=== PATIENT | female | born 1945 | race Caucasian/White ===

== ENCOUNTER 2022-01-17 17:09 | Inpatient (IN) | payer OTHER, SELFPAY ==
[2022-01-17] VITALS (13 sets, daily range): BP systolic 112–152; BP diastolic 58–85; PULSE 76–88; RESP 16–43; TEMP 36.2–36.6; O2SAT 89–100; BMI 25263.0
--- NOTE | 2022-01-17 17:37 | DI.RAD.S_ITS ---
PROCEDURE: XR CHEST 2V INDICATIONS: shortness of breath TECHNIQUE: 2 views of the chest were acquired. COMPARISON: None. FINDINGS: Surgical changes and devices: Cervical fusion hardware is present. Lungs and pleura: There is mild diffuse reticulonodular pulmonary opacity. No pleural effusions or pneumothorax. Mediastinum: Mediastinal contours are normal. Heart size is normal. Bones and chest wall: No suspicious bony abnormalities. Soft tissues appear unremarkable. IMPRESSION: Mild atypical pneumonia. Dictated by: Saranya Balderas M.D. on 01/17/2022 at 18:32 Approved by: Saranya Balderas M.D. on 01/17/2022 at 18:33
[2022-01-17 18:44] LABS: Add Manual Diff / Slide Review NO; Basophils Absolute Auto 100 /uL (0-100); Basophils Percent Auto 2.2 % (0-2); Eosinophils Absolute Auto 100 /uL (0-450); Eosinophils Percent Auto 2.2 % (2-4); Lymphocytes Absolute Auto 1200 /uL (1100-4500); Lymphocytes Percent Auto 18.7 % (25-40); Mean Corpuscular HGB Conc 29.9 % (30-36); Mean Corpuscular Hemoglobin 21.4 PG (26-34); Mean Corpuscular Volume 71.6 fL (80-100); Monocytes Absolute Auto 900 /uL (0-900); Monocytes Percent Auto 14.7 % (3-14); Neutrophils Absolute Auto 3900 /uL (1500-7000); Neutrophils Percent Auto 62.2 % (50-75); Platelet Count 404 X10^3/uL (150-400); Red Blood Cell Count 1.78 X10^6/uL (4.0-5.2); Red Cell Distribution Width 18.4 % (11.6-14.8); White Blood Cell Count 6.2 X10^3/uL (4.5-11.0)
--- NOTE | 2022-01-17 18:53 | ED_ITS ---
HPI - Chest Pain General Chief Complaint: Shortness of Breath/Dyspnea Stated Complaint: SOB/Chest Pain/Numbness In Arms/Leg Swelling Time Seen by Provider: 01/17/22 18:10 Source: patient and family Mode of arrival: Wheelchair Limitations: no limitations History of Present Illness HPI narrative: 76-year-old female with a history of hypertension and Delvalle's esophagus presents with family in the chief complaint of increasing shortness of breath, fatigue and lightheadedness over the past 1-2 weeks. She denies any runny nose, sore throat or cough. She is had no fever or chills. She denies chest pain. She denies any current abdominal pain but has had crampy abdominal discomfort and the passage of dark stool over this time. She denies any change in diet or medications. She takes no blood thinners and denies any history of liver disease. Related Data Home Medications Medication Instructions Recorded Confirmed atenolol 25 mg tablet 25 mg PO BID 01/17/22 01/17/22 duloxetine 20 mg capsule,delayed 20 mg PO DAILY 01/17/22 01/17/22 release escitalopram oxalate 5 mg tablet 5 mg PO TID 01/17/22 01/17/22 hydrochlorothiazide 25 mg tablet 25 mg PO DAILY 01/17/22 01/17/22 methocarbamol 750 mg tablet 750 mg PO BID PRN Pain (Scale 01/17/22 01/17/22 Score 4-6) omeprazole 20 mg capsule,delayed 20 mg PO BID 01/17/22 01/17/22 release Allergies Allergy/AdvReac Type Severity Reaction Status Date / Time aripiprazole [From Abilify] Allergy Unknown Verified 01/17/22 17:33 Penicillins Allergy Unknown Verified 01/17/22 17:33 Review of Systems Review of Systems Narrative: GENERAL: See HPI HEENT: Denies sinus pain, ear pain, sore throat, difficulty swallowing, dizziness. RESPIRATORY: See HPI CARDIOVASCULAR: Denies chest pain, palpitations, orthopnea, edema, GASTROINTESTINAL: See HPI : Denies dysuria, frequency, incontinence, hematuria, urinary retention. MUSCULOSKELETAL: denies weakness, joint pain, or bony pain SKIN: Denies rash, skin lesions, or other NEUROLOGIC: Denies weakness, headache, numbness, change in speech, confusion, seizures, incoordination. PSYCHIATRIC: No concerning psychosocial issues. 12 point review of systems is negative except for those stated above Patient History Social History Smoking Status: Never smoker Smoking Status: Never smoker alcohol intake frequency: a few times a week Substance Use Type: does not use Exam Narrative Exam Narrative: GENERAL: [76] year old patient appears stated age. Well-developed patient, in moderate distress, minimal exertion makes her short of breath HEAD: Atraumatic. Normocephalic. EYES: Pale conjunctivae Pupils equal round and reactive. Extraocular motions intact. No scleral icterus. No injection or drainage. ENT: Nose without bleeding, purulent drainage. Throat without erythema, tons illar hypertrophy or exudate. Airway patent. NECK: Trachea midline. Non tender CARDIOVASCULAR: Regular rate and rhythm without murmurs, gallops, or rubs. RESPIRATORY: Clear to auscultation. Breath sounds equal bilaterally. No wheezes, rales, or rhonchi. GASTROINTESTINAL: Abdomen soft, non-tender, nondistended. RECTAL: No stool, blood, or pain EXTREMITIES: No edema or joint tenderness. BACK: Nontender without deformity or crepitance. No flank tenderness. NEURO: AOx3. SKIN: No rash or erythema of visible areas Initial Vital Signs Initial Vital Signs: Vital Signs Temperature 97.9 F 01/17/22 17:13 Pulse Rate 81 01/17/22 17:13 Respiratory Rate 24 01/17/22 17:13 Blood Pressure 139/58 L 01/17/22 17:13 Pulse Oximetry 91 01/17/22 17:13 Oxygen Delivery Method 01/17/22 17:13 Course Orders Ordered: Acetaminophen (Acetaminophen 325 Mg Tablet) 650 mg PO Q6HR PRN PRN Reason: Fever/Mild Pain (1-3) Last Admin: 01/17/22 22:10 Dose: 650 mg Documented By: ANITRA Pantoprazole Sodium (Pantoprazole 40 Mg Vial) 40 mg IV BID JENNY Discontinued Medications POTASSIUM CHLORIDE IN WATER (Potassium Cl 10 Meq/100 Ml Liza) 10 meq in 100 mls @ 100 mls/hr IV Q1H JENNY Stop: 01/17/22 23:29 Last Admin: 01/17/22 22:23 Dose: Not Given Documented By: Infusion: 01/17/22 22:23 Dose: 0 mls/hr Documented By: Infusion: 01/17/22 21:39 Dose: 100 mls/hr Documented By: Admin: 01/17/22 20:51 Dose: 100 mls/hr Documented By: Infusion: 01/17/22 20:43 Dose: 100 mls/hr Documented By: Admin: 01/17/22 19:43 Dose: 100 mls/hr Documented By: HEMANT Pantoprazole Sodium (Pantoprazole 40 Mg Vial) 80 mg IV NOW ONE Stop: 01/17/22 19:13 Last Admin: 01/17/22 19:24 Dose: 80 mg Documented By: HEMANT Consultations Consultation #1: Discussed with on-call general surgeon (Walter) who was happy to be involved in consultation when needed by hospitalist Consultation #2: Hospitalist happy to accept Vital Signs Vital signs: Vital Signs - 8 hr 01/17/22 21:00 Pulse Rate 84 Respiratory Rate 34 H Pulse Oximetry 100 MDM - Chest Pain Lab Data Result diagrams: 01/17/22 18:29 01/17/22 18:29 Labs: Lab Results 01/17/22 01/17/22 01/17/22 Range/Units 17:40 18:29 18:29 WBC 6.2 (4.5-11.0) X10^3/uL RBC 1.78 L (4.0-5.2) X10^6/uL Hgb 3.8 L* (12.0-16.0) g/dL Hct 12.8 L* (36-46) % MCV 71.6 L (80-100) fL MCH 21.4 L (26-34) PG MCHC 29.9 L (30-36) % RDW 18.4 H (11.6-14.8) % Plt Count 404 H (150-400) X10^3/uL Neut % (Auto) 62.2 (50-75) % Lymph % (Auto) 18.7 L (25-40) % Nobles % (Auto) 14.7 H (3-14) % Eos % (Auto) 2.2 (2-4) % Baso % (Auto) 2.2 H (0-2) % Neut # (Auto) 3900 (0342-5295) /uL Lymph # (Auto) 1200 (2761-1803) /uL Nobles # (Auto) 900 (0-900) /uL Eos # (Auto) 100 (0-450) /uL Baso # (Auto) 100 (0-100) /uL Percent Retic (1.1-2.6) % D-Dimer (<230) ng/mL Sodium 133 L (137-145) mmol/L Potassium 3.0 L (3.4-5.1) mmol/L Chloride 95 L (98-107) mmol/L Carbon Dioxide 29 (22-32) mmol/L BUN 29 H (7-17) mg/dL Creatinine 1.53 H (0.52-1.04) mg/dL Estimated GFR 35 L (>60) mL/min BUN/Creatinine Ratio 19.0 (6-22) Glucose 117 H (80-110) mg/dL Lactate 1.0 (0.7-2.1) mmol/L Calcium 8.8 (8.4-10.2) mg/dL Iron (37-170) ug/dL TIBC (265-497) ug/dL % Saturation (15-50) % Transferrin (206-381) mg/dL Total Bilirubin 0.4 (0.2-1.3) mg/dL AST 59 H (14-36) IU/L ALT 27 (<35) IU/L Alkaline Phosphatase 72 (38-126) U/L Troponin I (0.01-0.034) ng/mL NT-Pro-B Natriuret Pep (<125) pg/mL Total Protein 6.2 L (6.3-8.2) g/dL Albumin 4.0 (3.5-5.0) g/dL Globulin 2.2 (1.7-4.1) g/dL Albumin/Globulin Ratio 1.8 (1.0-2.8) Vitamin B12 (239-931) pg/mL Folate (2.76-20.0) ng/mL Procalcitonin (<0.5) ng/mL SARS-CoV-2 (PCR) (Negative) Blood Type Antibody Screen Crossmatch 01/17/22 01/17/22 01/17/22 Range/Units 18:29 18:29 18:29 WBC (4.5-11.0) X10^3/uL RBC (4.0-5.2) X10^6/uL Hgb (12.0-16.0) g/dL Hct (36-46) % MCV (80-100) fL MCH (26-34) PG MCHC (30-36) % RDW (11.6-14.8) % Plt Count (150-400) X10^3/uL Neut % (Auto) (50-75) % Lymph % (Auto) (25-40) % Nobles % (Auto) (3-14) % Eos % (Auto) (2-4) % Baso % (Auto) (0-2) % Neut # (Auto) (7089-7000) /uL Lymph # (Auto) (3435-9404) /uL Nobles # (Auto) (0-900) /uL Eos # (Auto) (0-450) /uL Baso # (Auto) (0-100) /uL Percent Retic (1.1-2.6) % D-Dimer < 200 (<230) ng/mL Sodium (137-145) mmol/L Potassium (3.4-5.1) mmol/L Chloride (98-107) mmol/L Carbon Dioxide (22-32) mmol/L BUN (7-17) mg/dL Creatinine (0.52-1.04) mg/dL Estimated GFR (>60) mL/min BUN/Creatinine Ratio (6-22) Glucose (80-110) mg/dL Lactate (0.7-2.1) mmol/L Calcium (8.4-10.2) mg/dL Iron (37-170) ug/dL TIBC (265-497) ug/dL % Saturation (15-50) % Transferrin (206-381) mg/dL Total Bilirubin (0.2-1.3) mg/dL AST (14-36) IU/L ALT (<35) IU/L Alkaline Phosphatase (38-126) U/L Troponin I (0.01-0.034) ng/mL NT-Pro-B Natriuret Pep 6820 H (<125) pg/mL Total Protein (6.3-8.2) g/dL Albumin (3.5-5.0) g/dL Globulin (1.7-4.1) g/dL Albumin/Globulin Ratio (1.0-2.8) Vitamin B12 (239-931) pg/mL Folate (2.76-20.0) ng/mL Procalcitonin 0.07 (<0.5) ng/mL SARS-CoV-2 (PCR) (Negative) Blood Type Antibody Screen Crossmatch 01/17/22 01/17/22 01/17/22 Range/Units 18:29 18:29 18:29 WBC (4.5-11.0) X10^3/uL RBC (4.0-5.2) X10^6/uL Hgb (12.0-16.0) g/dL Hct (36-46) % MCV (80-100) fL MCH (26-34) PG MCHC (30-36) % RDW (11.6-14.8) % Plt Count (150-400) X10^3/uL Neut % (Auto) (50-75) % Lymph % (Auto) (25-40) % Nobles % (Auto) (3-14) % Eos % (Auto) (2-4) % Baso % (Auto) (0-2) % Neut # (Auto) (2436-9563) /uL Lymph # (Auto) (8686-7803) /uL Nobles # (Auto) (0-900) /uL Eos # (Auto) (0-450) /uL Baso # (Auto) (0-100) /uL Percent Retic 4.0 H (1.1-2.6) % D-Dimer (<230) ng/mL Sodium (137-145) mmol/L Potassium (3.4-5.1) mmol/L Chloride (98-107) mmol/L Carbon Dioxide (22-32) mmol/L BUN (7-17) mg/dL Creatinine (0.52-1.04) mg/dL Estimated GFR (>60) mL/min BUN/Creatinine Ratio (6-22) Glucose (80-110) mg/dL Lactate (0.7-2.1) mmol/L Calcium (8.4-10.2) mg/dL Iron 26 L (37-170) ug/dL TIBC 480 (265-497) ug/dL % Saturation 5 L (15-50) % Transferrin 415 H (206-381) mg/dL Total Bilirubin (0.2-1.3) mg/dL AST (14-36) IU/L ALT (<35) IU/L Alkaline Phosphatase (38-126) U/L Troponin I 0.019 (0.01-0.034) ng/mL NT-Pro-B Natriuret Pep (<125) pg/mL Total Protein (6.3-8.2) g/dL Albumin (3.5-5.0) g/dL Globulin (1.7-4.1) g/dL Albumin/Globulin Ratio (1.0-2.8) Vitamin B12 (239-931) pg/mL Folate (2.76-20.0) ng/mL Procalcitonin (<0.5) ng/mL SARS-CoV-2 (PCR) (Negative) Blood Type Antibody Screen Crossmatch 01/17/22 01/17/22 01/17/22 Range/Units 18:29 18:31 19:24 WBC (4.5-11.0) X10^3/uL RBC (4.0-5.2) X10^6/uL Hgb (12.0-16.0) g/dL Hct (36-46) % MCV (80-100) fL MCH (26-34) PG MCHC (30-36) % RDW (11.6-14.8) % Plt Count (150-400) X10^3/uL Neut % (Auto) (50-75) % Lymph % (Auto) (25-40) % Nobles % (Auto) (3-14) % Eos % (Auto) (2-4) % Baso % (Auto) (0-2) % Neut # (Auto) (9665-2698) /uL Lymph # (Auto) (3197-7744) /uL Nobles # (Auto) (0-900) /uL Eos # (Auto) (0-450) /uL Baso # (Auto) (0-100) /uL Percent Retic (1.1-2.6) % D-Dimer (<230) ng/mL Sodium (137-145) mmol/L Potassium (3.4-5.1) mmol/L Chloride (98-107) mmol/L Carbon Dioxide (22-32) mmol/L BUN (7-17) mg/dL Creatinine (0.52-1.04) mg/dL Estimated GFR (>60) mL/min BUN/Creatinine Ratio (6-22) Glucose (80-110) mg/dL Lactate (0.7-2.1) mmol/L Calcium (8.4-10.2) mg/dL Iron (37-170) ug/dL TIBC (265-497) ug/dL % Saturation (15-50) % Transferrin (206-381) mg/dL Total Bilirubin (0.2-1.3) mg/dL AST (14-36) IU/L ALT (<35) IU/L Alkaline Phosphatase (38-126) U/L Troponin I (0.01-0.034) ng/mL NT-Pro-B Natriuret Pep (<125) pg/mL Total Protein (6.3-8.2) g/dL Albumin (3.5-5.0) g/dL Globulin (1.7-4.1) g/dL Albumin/Globulin Ratio (1.0-2.8) Vitamin B12 849 (239-931) pg/mL Folate > 20.0 H (2.76-20.0) ng/mL Procalcitonin (<0.5) ng/mL SARS-CoV-2 (PCR) Negative (Negative) Blood Type O Positive Antibody Screen Negative Crossmatch See Detail Discharge Plan Departure Patient Disposition: Admitted As Inpatient Clinical Impression: Symptomatic anemia, Acute GI bleeding Admit Date/Time: 01/17/22 21:09 Admit Provider: Juanjose Harrell
[2022-01-17 18:56] LABS: Hemoglobin 3.8 g/dL (12.0-16.0)
[2022-01-17 18:57] LABS: Hematocrit 12.8 % (36-46)
[2022-01-17 18:58] LABS: Alanine Aminotransferase 27 IU/L (<35); Albumin Globulin Ratio 1.8 (1.0-2.8); Alkaline Phosphatase 72 U/L (38-126); Aspartate Aminotransferase 59 IU/L (14-36); Bilirubin Total 0.4 mg/dL (0.2-1.3); Blood Urea Nitrogen 29 mg/dL (7-17); Calcium 8.8 mg/dL (8.4-10.2); Carbon Dioxide 29 mmol/L (22-32); Chloride 95 mmol/L (98-107); Estimated Glomerular Filt Rate 35 mL/min (>60); Globulin 2.2 g/dL (1.7-4.1); Glucose 117 mg/dL (80-110); HEMOLYSIS < 15 (0-50); Sodium 133 mmol/L (137-145); Total Protein 6.2 g/dL (6.3-8.2)
[2022-01-17 19:03] LABS: D Dimer < 200 ng/mL (<230)
[2022-01-17 19:06] LABS: NT-proBNP (BNP-Adult 18+) 6820 pg/mL (<125)
[2022-01-17 19:13] LABS: Procalcitonin 0.07 ng/mL (<0.5)
[2022-01-17 19:22] LABS: COVID19 -Nasal RAPID Negative (Negative)
[2022-01-17] MEDS: PANTOPRAZOLE 40 MG VIAL 80 MG IV (19:24)
[2022-01-17] MEDS: POTASSIUM CHLORIDE IN WATER 10 MEQ/100 ML PIGGYBACK 100 MEQ IV ×2 (19:43→20:51)
--- NOTE | 2022-01-17 20:20 | PC.NURSE ---
pt assisted back to the stretcher from the [facility], YOU noted, pt placed on oxygen @ 2L NBP
[2022-01-17 21:43] LABS: HEMOLYSIS 39 (0-50); Iron 26 ug/dL (37-170)
--- NOTE | 2022-01-17 21:43 | DI.ECHO.S_ITS ---
[place] +---------+ [facility] +---------+ : : [address] : : : : [id number] : : : : Phone: [phone]+ Echocardiogram Report + + :Name: ZANE MCDANIELS Study Date: 01/18/2022 Height: 62 in : :[facility] ReadingLocation: Weight: 138 lb : : Gender: Female BSA: 1.6 m2 : :: 1945 Age: 76 yrs BP: 159/64 mmHg: :Reason For Study: ELEVATED BNP, CHF : :Ordering Physician: JESUS, : :GONZALO Performed By: Anastacia Medina : :Referring: GONZALO LEE : + + Interpretation Summary The left ventricle is normal in size. Left ventricular systolic function appears normal without focal wall motion abnormalities. The ejection fraction is estimated to be 60-65%. Diastolic function could not be accurately assessed due to confounding valvular disease. The right ventricle is normal in size and function. The right ventricular systolic pressure is estimated to be at least 58 mmHg based on an estimated right atrial pressure of 15 mm Hg. The left atrium is severely dilated. The right atrium is mildly dilated. There is moderate mitral regurgitation. There is moderate tricuspid regurgitation. There is no other significant valvular heart disease. The aortic root is normal size. Procedure: A two-dimensional transthoracic echocardiogram with color flow and Doppler was performed. The study quality was technically good. There is no prior echocardiogram noted for this patient. The patient was in sinus rhythm with heart rates between 71-82 bpm during the exam. Left Ventricle: The left ventricle is normal in size. Proximal septal thickening is noted. Left ventricular systolic function appears normal without focal wall motion abnormalities. The ejection fraction is estimated to be 60- 65%. Diastolic function could not be accurately assessed due to confounding valvular disease. Right Ventricle: The right ventricle is normal in size and function. Atria: The left atrium is severely dilated. The right atrium is mildly dilated. There is no Doppler evidence for an interatrial shunt. Mitral Valve: The mitral valve leaflets appear mildly thickened, but open well. There is mild mitral annular calcification. There is moderate mitral regurgitation. Aortic Valve: The aortic valve is slightly calcified. There is moderate aortic valve sclerosis. The peak aortic velocity is 2.4 m/sec. The aortic valve mean gradient is 12 mmHg. The calculated aortic valve area is 1.6 cm2. There is trace aortic regurgitation. Tricuspid Valve: The tricuspid valve leaflets are thin and pliable. There is moderate tricuspid regurgitation. The right ventricular systolic pressure is estimated to be at least 58 mmHg based on an estimated right atrial pressure of 15 mm Hg. Pulmonic Valve: The pulmonic valve leaflets are thin and pliable; valve motion is normal. There is mild pulmonic regurgitation. There is no other significant valvular heart disease. Great Vessels: The aortic root is normal size. The dimensions of the ascending aorta are normal. The IVC is dilated (diameter is greater than 2.1 cm) and it collapses less than 50% with a sniff. This suggests a high right atrial pressure of 15 mm Hg. Pericardium/ Pleura There is no pericardial effusion. There is no pleural effusion. MMode/2D Measurements & Calculations LVIDd: 5.1 cm LVOT diam: 2.0 cm LVIDs: 3.1 cm Ao root diam: 3.3 cm FS: 38.7 % asc Aorta Diam: 3.4 cm IVSd: 1.1 cm Ao Arch Diam (Prox Trans): 2.6 cm LVPWd: 1.1 cm LV plata. diameter/BSA (cm/m^2): 3.1 LV sys. diameter/BSA (cm/m^2): 1.9 LA A2 area: 22.4 cm2 RA long axis: 5.2 cm LA A4 area: 25.0 cm2 RA area: 19.1 cm2 LA length (vol): 5.3 cm RA vol: 59.3 ml LA vol: 90.0 ml RA : 36.3 ml/m2 LA vol index: 55.1 ml/m2 IVC diam: 2.6 cm RVD1 (basal): 3.9 cm RVD2 (mid): 3.0 cm TAPSE: 2.0 cm Doppler Measurements & Calculations Ao V2 max: 242.2 cm/sec LVOT Max Kristopher: 125.4 cm/sec Ao V2 mean: 163.4 cm/sec LV V1 max P.3 mmHg Ao max P.6 mmHg LV V1 VTI: 29.1 cm Ao mean P.2 mmHg FARIHA(I,D): 1.7 cm2 Ao V2 VTI: 53.5 cm FARIHA(V,D): 1.6 cm2 sev ratio: 0.54 FARIHA indexed to BSA (cm^2/m^2): 1.0 MV E max kristopher: 100.1 cm/sec TR max kristopher: 328.3 cm/sec MV A max kristopher: 84.9 cm/sec TR max P.1 mmHg MV E/A: 1.2 PA V2 max: 90.6 cm/sec Med Peak E' Kristopher: 7.5 cm/sec PA V2 mean: 53.7 cm/sec E/E' med: 13.3 PA mean P.3 mmHg Lat Peak E' Kristopher: 7.0 cm/sec PA pr(Accel): 27.6 mmHg E/E' lat: 14.3 E/e' average: 13.8 MV dec time: 0.21 sec SV(LVOT): 88.6 ml Reading Physician:11:20 AM
[2022-01-17 21:54] LABS: Percent Iron Saturation 5 % (15-50); Total Iron Binding Capacity 480 ug/dL (265-497); Transferrin 415 mg/dL (206-381)
[2022-01-17 21:56] LABS: Troponin I 0.019 ng/mL (0.01-0.034)
[2022-01-17] MEDS: ACETAMINOPHEN 325 MG TABLET 650 MG PO (22:10)
--- NOTE | 2022-01-17 22:36 | PC.NURSE ---
Admitted from ED. Patient complains of 3/10 chest pain and 7/10 back pain. Shortness of breath on exertion and occasionally shortness of breath at rest. Patient notably pale. Called lab due to long wait time for blood and they stated their machine was down and they had to do everything by hand. Continuing to wait for blood.
--- NOTE | 2022-01-17 22:53 | PM.HP.1 ---
History of Present Illness History of Present Illness Date Patient Seen: 01/17/22 Time Patient Seen: 21:00 Chief complaint: SOB/Chest Pain/Numbness In Arms/Leg Swelling Narrative: Ms. Martines is a 76W with PMH of depression, HTN, GERD, Alexander's esophagus who presents with fatigue, lightheaded, and short of breath. She states she has a history of peptic ulcers, and from her description had a perforation decades ago after which she had part of her stomach surgically removed. She states she has a history of pernicious anemia and possible iron deficiency, but is not currently on medications for these. She has noted intermittend red blood in her stool for quite some time. She has last colonoscopy approximately three years ago found to have diverticulosis, and she has alexander's esophagus. She has also had epigastric discomfort chronically. No vomiting blood, no fevers/chills. No coughing. She has no known history of cardiac disease. She has noted a 25lb weight loss within the last year and states this is intentional. In the ED workup was done, vitals notable for mild tachypnea and hypoxemia to 89% on room air. She was placed on nasal cannula. Labs notable for WBC 6.2, hgb 3.8, plts 404. Na 133, K 3.0, BUN 29, creatinine 1.53. Lactate 1.0. Procal 0.07. BNP 6820. Chest xray read a mild diffuse reticulonodular pulmonary opacity. She was ordered for protonix, IV fluid, and blood and admitted for further treatment. Social history: no smoking, rare alcohol use Family history: stomach cancer Patient History Family & Social History Safety & Behavioral: Feels Safe in Current Yes Environment Tobacco & Substance use: Smoking Status Never smoker alcohol intake frequency a few times a week Substance Use Type does not use Meds Home Medications and Allergies Home Medications Medication Instructions Recorded Confirmed Type atenolol 25 mg tablet 25 mg PO BID 01/17/22 01/17/22 History duloxetine 20 mg capsule,delayed 20 mg PO DAILY 01/17/22 01/17/22 History release escitalopram oxalate 5 mg tablet 5 mg PO TID 01/17/22 01/17/22 History hydrochlorothiazide 25 mg tablet 25 mg PO DAILY 01/17/22 01/17/22 History methocarbamol 750 mg tablet 750 mg PO BID PRN Pain (Scale 01/17/22 01/17/22 History Score 4-6) omeprazole 20 mg capsule,delayed 20 mg PO BID 01/17/22 01/17/22 History release Allergies Allergy/AdvReac Type Severity Reaction Status Date / Time aripiprazole [From Abilify] Allergy Unknown Verified 01/17/22 17:33 Penicillins Allergy Unknown Verified 01/17/22 17:33 Review of Systems Review of Systems Narrative: 14 systems reviewed and negative aside from what is noted in HPI Exam Vital Signs (past 8 hours): - 01/17/22 17:13 01/17/22 18:06 01/17/22 18:05 Temperature 97.9 F Pulse Rate 81 80 79 Respiratory Rate 24 20 24 Blood Pressure 139/58 L 149/67 H Pulse Oximetry 91 94 90 L Oxygen Delivery Method Room Air Room Air Room Air Oxygen Flow Rate 01/17/22 18:06 01/17/22 18:06 01/17/22 18:30 Temperature Pulse Rate 79 88 Respiratory Rate 24 20 Blood Pressure 149/67 H Pulse Oximetry 94 89 L Oxygen Delivery Method Room Air Oxygen Flow Rate 01/17/22 19:00 01/17/22 19:30 01/17/22 20:00 Temperature Pulse Rate 82 82 80 Respiratory Rate 37 H 34 H 37 H Blood Pressure Pulse Oximetry 95 94 94 Oxygen Delivery Method Oxygen Flow Rate 01/17/22 20:30 01/17/22 21:00 01/17/22 22:00 Temperature 97.3 F L Pulse Rate 80 84 82 Respiratory Rate 43 H 34 H 16 Blood Pressure 145/85 H Pulse Oximetry 100 100 100 Oxygen Delivery Method Oxygen Flow Rate 2 01/17/22 21:16 Temperature Pulse Rate Respiratory Rate Blood Pressure Pulse Oximetry Oxygen Delivery Method Nasal Cannula Oxygen Flow Rate Oxygen Delivery Method Nasal Cannula Oxygen Flow Rate 2 Narrative Exam Narrative: GEN: moderate respiratory distress HEENT: pale conjunctiva, PERRL NECK: trachea midline, no JVD CV: regular rate and rhythm, no murmurs PULM: clear bilaterally, no wheezes, rhonchi, rales ABD: soft, nontender, nondistended, no organomegaly, normal bowel sounds EXT: warm and well perfused, with no edema NEURO: awake, alert, oriented, with no focal deficits Objective Labs Result Diagrams: 01/17/22 18:29 01/17/22 18:29 Labs: Laboratory Results - last 24 hr 01/17/22 01/17/22 01/17/22 17:40 18:29 18:29 WBC 6.2 RBC 1.78 L Hgb 3.8 L* Hct 12.8 L* MCV 71.6 L MCH 21.4 L MCHC 29.9 L RDW 18.4 H Plt Count 404 H Neut % (Auto) 62.2 Lymph % (Auto) 18.7 L Bertie % (Auto) 14.7 H Eos % (Auto) 2.2 Baso % (Auto) 2.2 H Neut # (Auto) 3900 Lymph # (Auto) 1200 Bertie # (Auto) 900 Eos # (Auto) 100 Baso # (Auto) 100 Percent Retic D-Dimer Sodium 133 L Potassium 3.0 L Chloride 95 L Carbon Dioxide 29 BUN 29 H Creatinine 1.53 H Estimated GFR 35 L BUN/Creatinine Ratio 19.0 Glucose 117 H Lactate 1.0 Calcium 8.8 Iron TIBC % Saturation Transferrin Total Bilirubin 0.4 AST 59 H ALT 27 Alkaline Phosphatase 72 Troponin I NT-Pro-B Natriuret Pep Total Protein 6.2 L Albumin 4.0 Globulin 2.2 Albumin/Globulin Ratio 1.8 Procalcitonin SARS-CoV-2 (PCR) Blood Type Crossmatch 01/17/22 01/17/22 01/17/22 18:29 18:29 18:29 WBC RBC Hgb Hct MCV MCH MCHC RDW Plt Count Neut % (Auto) Lymph % (Auto) Bertie % (Auto) Eos % (Auto) Baso % (Auto) Neut # (Auto) Lymph # (Auto) Bertie # (Auto) Eos # (Auto) Baso # (Auto) Percent Retic D-Dimer < 200 Sodium Potassium Chloride Carbon Dioxide BUN Creatinine Estimated GFR BUN/Creatinine Ratio Glucose Lactate Calcium Iron TIBC % Saturation Transferrin Total Bilirubin AST ALT Alkaline Phosphatase Troponin I NT-Pro-B Natriuret Pep 6820 H Total Protein Albumin Globulin Albumin/Globulin Ratio Procalcitonin 0.07 SARS-CoV-2 (PCR) Blood Type Crossmatch 01/17/22 01/17/22 01/17/22 18:29 18:29 18:29 WBC RBC Hgb Hct MCV MCH MCHC RDW Plt Count Neut % (Auto) Lymph % (Auto) Bertie % (Auto) Eos % (Auto) Baso % (Auto) Neut # (Auto) Lymph # (Auto) Bertie # (Auto) Eos # (Auto) Baso # (Auto) Percent Retic 4.0 H D-Dimer Sodium Potassium Chloride Carbon Dioxide BUN Creatinine Estimated GFR BUN/Creatinine Ratio Glucose Lactate Calcium Iron 26 L TIBC 480 % Saturation 5 L Transferrin 415 H Total Bilirubin AST ALT Alkaline Phosphatase Troponin I 0.019 NT-Pro-B Natriuret Pep Total Protein Albumin Globulin Albumin/Globulin Ratio Procalcitonin SARS-CoV-2 (PCR) Blood Type Crossmatch 01/17/22 01/17/22 18:31 19:24 WBC RBC Hgb Hct MCV MCH MCHC RDW Plt Count Neut % (Auto) Lymph % (Auto) Bertie % (Auto) Eos % (Auto) Baso % (Auto) Neut # (Auto) Lymph # (Auto) Bertie # (Auto) Eos # (Auto) Baso # (Auto) Percent Retic D-Dimer Sodium Potassium Chloride Carbon Dioxide BUN Creatinine Estimated GFR BUN/Creatinine Ratio Glucose Lactate Calcium Iron TIBC % Saturation Transferrin Total Bilirubin AST ALT Alkaline Phosphatase Troponin I NT-Pro-B Natriuret Pep Total Protein Albumin Globulin Albumin/Globulin Ratio Procalcitonin SARS-CoV-2 (PCR) Negative Blood Type O Positive Crossmatch See Detail Assessment & Plan Assessment & Plan narrative: Ms. Martines is a 76W with PMH HTN, depression who presents with shortness of breath, fatigue and found to have severe anemia 1. Symptomatic severe anemia from probable GI bleeding -initial hemoglobin of 3.8 -check iron studies and b12 -patient has noted GI bleeding previously -in ED rectal showed no stool -ordered for protonix gtt for possible upper GI bleed -also has weight loss, would benefit ruling out malignancy -transfuse 2U PRBC -likely will need IV lasix if shortness of breath worsens -NPO after midnight -surgery consult for possible EGD/colonoscopy to evaluate for site of bleed 2. Acute hypoxemic respiratory failure -initial sats in the 80s on room air, placed on o2 -suspect secondary to severe anemia -xray read as questionable interstitial abnormality -clinically not presenting as a pneumonia, hold antibiotics for now -BNP elevated, possibly undiagnosed CHF will order ECHO 3. SANDRA -suspect secondary to hypovolemia due to severe anemia -possibly worsened due to blood pressure meds -did get IV fluids in the ED -suspect will continue to improve with resuscitation with blood 4. Hypertension -hold atenolol, HCTZ 5. Depression -continue escitalopram CODE: DNI, ok for CPR Proxy: Valeria Martines, daughter I have utilized all available resources to reconcile the patient's home medications. Time Spent With Patient Critical Care time: I spent a total of [] minutes of critical care time on this patient's care today; this time is exclusive of procedural time. Quality MIPS - Admit I confirm the patient?s Advance Care Plan is present, Code status is documented, Surrogate decision maker is in patient?s record [If Yes, STOP here]: Yes
[2022-01-18] VITALS (20 sets, daily range): BP systolic 115–170; BP diastolic 50–80; PULSE 71–81; RESP 13–20; TEMP 36.1–37.2; O2SAT 92–100; BMI 25263.0; BMI 25.6
--- NOTE | 2022-01-18 | PATH_ITS ---
[facility] Accession Number: [id number] . 01 Material submitted: . PART A: stomach - STOMACH BIOPSY PART B: gastrointestinal site - GASTRIC POLYP . 01 Diagnosis: A. Stomach, Biopsy: Mild chronic gastritis with intestinal metaplasia. Negative for Helicobacter by immunohistochemistry. Negative for dysplasia and malignancy. . B. Stomach, Polyp, Biopsy: Body-type mucosa with a few dilated glands, consistent with fundic gland polyps. No evidence of Helicobacter on H/E stain. Negative for intestinal metaplasia. Negative for dysplasia and malignancy. [facility] [place]/24/2022 1536 Local . 01 Electronically signed: . Valeria Cordova MD, Pathologist NPI- [id number] . 01 Gross description: . Part A: STOMACH BIOPSY: Received in formalin is 1 fragment(s) of michel, soft tissue measuring 0.4 x 0.3 x 0.1 cm submitted entirely in 1 cassette(s) Part B: GASTRIC POLYP: Received in formalin are 2 fragment(s) of michel, soft tissue measuring 0.3 x 0.2 x 0.1 cm to 0.3 x 0.2 x 0.1 cm submitted entirely in 1 cassette(s) /CPE 01/19/2022 0510 Local . 01 Microscopic: . A. An immunohistochemcial stain was performed to evaluate for Helicobacter organisms and is negative. The control stain showed appropriate reactivity. . * This test was developed and its performance characteristics determined by [employer]. It has not been cleared or approved by the U.S. Food and Drug Administration. The FDA has determined that such clearance or approval is not necessary. This test is used for clinical purposes. It should not be regarded as investigational or for research. . 01 Pathologist provided ICD-10: R10.9 . 01 CPT . 814981, 561617, K93556 Specimen Comment: A courtesy copy of this report has been sent to [phone] Performed at: 01 [facility] [address] [place] [address] [id number] MD Isaiah Becker MD Phone: [phone]
[2022-01-18 03:12] LABS: Folate > 20.0 ng/mL (2.76-20.0); Vitamin B12 849 pg/mL (239-931)
[2022-01-18 05:37] LABS: Add Manual Diff / Slide Review NO; Basophils Absolute Auto 200 /uL (0-100); Basophils Percent Auto 2.1 % (0-2); Eosinophils Absolute Auto 200 /uL (0-450); Eosinophils Percent Auto 3.1 % (2-4); Hemoglobin 7.4 g/dL (12.0-16.0); Lymphocytes Absolute Auto 1200 /uL (1100-4500); Lymphocytes Percent Auto 15.6 % (25-40); Mean Corpuscular Hemoglobin 25.1 PG (26-34); Mean Corpuscular Volume 78.3 fL (80-100); Monocytes Absolute Auto 900 /uL (0-900); Monocytes Percent Auto 11.7 % (3-14); Neutrophils Absolute Auto 5000 /uL (1500-7000); Neutrophils Percent Auto 67.5 % (50-75); Platelet Count 348 X10^3/uL (150-400); Red Blood Cell Count 2.93 X10^6/uL (4.0-5.2); White Blood Cell Count 7.5 X10^3/uL (4.5-11.0)
[2022-01-18] MEDS: ALBUTEROL/IPRATROPIUM 3 ML AMPUL INH (05:43)
[2022-01-18 05:49] LABS: BUN Creatinine Ratio 15.7 (6-22); Blood Urea Nitrogen 24 mg/dL (7-17); Calcium 8.7 mg/dL (8.4-10.2); Carbon Dioxide 32 mmol/L (22-32); Chloride 96 mmol/L (98-107); Estimated Glomerular Filt Rate 35 mL/min (>60); Glucose 114 mg/dL (80-110); HEMOLYSIS < 15 (0-50); Potassium 3.1 mmol/L (3.4-5.1); Sodium 135 mmol/L (137-145)
[2022-01-18] MEDS: PANTOPRAZOLE 40 MG VIAL IV ×2 (08:49→20:36)
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
--- NOTE | 2022-01-18 12:40 | DI.CT.S_ITS ---
PROCEDURE: CT CHEST ABD PEL W CON INDICATIONS: anemia TECHNIQUE: After the administration of oral and intravenous contrast, axial sections acquired from the supraclavicular neck to the pubic symphysis. Coronal and sagittal reformats were performed. For radiation dose reduction, the following was used: automated exposure control, adjustment of mA and/or kV according to patient size. COMPARISON: None. FINDINGS: Image quality: Excellent. Images are denoted as (series #/image #). CHEST: Lower Neck: No enlarged lymph nodes. Axillae: No enlarged lymph nodes. Lungs and Airways: Biapical pleural/parenchymal scarring present. Linear opacity at the left lung apex likely represents scarring but is slightly prominent/nodular at its inferior margin (3/46). Mild interlobular septal thickening at the lung bases. Minimal central ground-glass opacities present. Small cluster of micronodularity at the right upper lobe (for example 3/42), likely infectious/inflammatory. Pleura: Trace bilateral pleural effusions. Heart: No pericardial effusion. Multivessel coronary artery calcifications. Thoracic Vessels: The aorta and pulmonary arteries demonstrate normal size. Mediastinum and Vickie: No enlarged lymph nodes. Esophagus: No wall thickening. ABDOMEN: Liver: No suspicious focal lesions visualized. Probable Tip's lobe variant anatomy. Gallbladder: No radiopaque gallstones. Biliary ducts: Unremarkable. Pancreas: No main ductal dilation. Spleen: Unremarkable. Adrenal Glands: Unremarkable. Kidneys and Ureters: No hydronephrosis. Stomach and Bowel: Postsurgical changes of the stomach, likely prior partial gastrectomy. No evidence of mechanical small bowel obstruction. Mild predominantly sigmoid colonic diverticulosis without evidence of acute diverticulitis. Peritoneum: No abnormal intraperitoneal fluid. No free air. Ventral Wall: No hernia. Abdominal Nodes: No retroperitoneal or mesenteric adenopathy by size criteria. Vessels: Aorta and inferior vena cava are normal in size. PELVIS: Pelvic Organs: The uterus is not visualized and is presumed surgically absent. Bladder: Unremarkable. Pelvic Nodes: No enlarged lymph nodes. Miscellaneous: No inguinal hernias are seen. Bones: Multilevel degenerative change of the visualized spine. Postsurgical changes L2-L4 with screws and interbody spacers present. Remote healed angulated sternal body fracture. Multiple remote appearing vertebral body compression and split/pincer fractures present. IMPRESSION: 1. Trace bilateral pleural effusions and pulmonary findings suggestive of mild pulmonary edema. 2. Linear opacity at the left lung apex is suspected to represent scarring but is mildly prominent/nodular at its inferior margin and an underlying nodule is difficult to fully exclude. Follow-up imaging to ensure stability is recommended, consider an interval of 6-12 months or sooner/later at clinical discretion. 3. Small cluster of micro nodularity in the right upper lobe is likely infectious/inflammatory such as an infectious bronchiolitis or sequela of edema. 4. No acute findings visualized within the abdomen or pelvis. 5. Mild colonic diverticulosis without evidence of acute diverticulitis. Dictated by: Jarret Steel M.D. on 01/18/2022 at 13:28 Approved by: Jarret Steel M.D. on 01/18/2022 at 14:00
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
--- NOTE | 2022-01-18 14:39 | PC.NURSE ---
Pt to OR via w/c for EGD.
--- NOTE | 2022-01-18 14:44 | P.PN_ITS ---
Subjective Subjective Date Patient Seen: 01/18/22 Interval history: continues to feel short of breath today, mainly with exertion, but overall feels much improved. CT scan showed no obvious malignancy. General surgery to perform EGD today and if no obvious cause to perform colonoscopy in the next couple of days. Exam Vital Signs (past 8 hours): - 01/18/22 08:00 01/18/22 08:20 01/18/22 12:00 Temperature 98.0 F 97.4 F L Pulse Rate 81 74 Respiratory Rate 18 18 Blood Pressure 141/56 H 159/60 H Pulse Oximetry 93 93 94 Oxygen Delivery Method Room Air Oxygen Flow Rate 0 0 0 Oxygen Delivery Method Room Air Oxygen Flow Rate 0 Narrative Exam Narrative: GEN: elderly female, no acute distress, winded with prolonged sentences. HEENT: pale conjunctiva, PERRL NECK: trachea midline, no JVD CV: regular rate and rhythm, no murmurs PULM: clear bilaterally, no wheezes, rhonchi, rales ABD: soft, nontender, nondistended, no organomegaly, normal bowel sounds EXT: warm and well perfused, with no edema NEURO: awake, alert, oriented, with no focal deficits Objective Labs Result Diagrams: 01/18/22 05:17 01/18/22 05:17 Labs: Laboratory Results - last 24 hr 01/17/22 01/17/22 01/17/22 17:40 18:29 18:29 WBC 6.2 RBC 1.78 L Hgb 3.8 L* Hct 12.8 L* MCV 71.6 L MCH 21.4 L MCHC 29.9 L RDW 18.4 H Plt Count 404 H Neut % (Auto) 62.2 Lymph % (Auto) 18.7 L Wallace % (Auto) 14.7 H Eos % (Auto) 2.2 Baso % (Auto) 2.2 H Neut # (Auto) 3900 Lymph # (Auto) 1200 Wallace # (Auto) 900 Eos # (Auto) 100 Baso # (Auto) 100 Percent Retic D-Dimer Sodium 133 L Potassium 3.0 L Chloride 95 L Carbon Dioxide 29 BUN 29 H Creatinine 1.53 H Estimated GFR 35 L BUN/Creatinine Ratio 19.0 Glucose 117 H Lactate 1.0 Calcium 8.8 Iron TIBC % Saturation Transferrin Total Bilirubin 0.4 AST 59 H ALT 27 Alkaline Phosphatase 72 Troponin I NT-Pro-B Natriuret Pep Total Protein 6.2 L Albumin 4.0 Globulin 2.2 Albumin/Globulin Ratio 1.8 Vitamin B12 Folate Procalcitonin SARS-CoV-2 (PCR) Blood Type Antibody Screen Crossmatch 01/17/22 01/17/22 01/17/22 18:29 18:29 18:29 WBC RBC Hgb Hct MCV MCH MCHC RDW Plt Count Neut % (Auto) Lymph % (Auto) Wallace % (Auto) Eos % (Auto) Baso % (Auto) Neut # (Auto) Lymph # (Auto) Wallace # (Auto) Eos # (Auto) Baso # (Auto) Percent Retic D-Dimer < 200 Sodium Potassium Chloride Carbon Dioxide BUN Creatinine Estimated GFR BUN/Creatinine Ratio Glucose Lactate Calcium Iron TIBC % Saturation Transferrin Total Bilirubin AST ALT Alkaline Phosphatase Troponin I NT-Pro-B Natriuret Pep 6820 H Total Protein Albumin Globulin Albumin/Globulin Ratio Vitamin B12 Folate Procalcitonin 0.07 SARS-CoV-2 (PCR) Blood Type Antibody Screen Crossmatch 01/17/22 01/17/22 01/17/22 18:29 18:29 18:29 WBC RBC Hgb Hct MCV MCH MCHC RDW Plt Count Neut % (Auto) Lymph % (Auto) Wallace % (Auto) Eos % (Auto) Baso % (Auto) Neut # (Auto) Lymph # (Auto) Wallace # (Auto) Eos # (Auto) Baso # (Auto) Percent Retic 4.0 H D-Dimer Sodium Potassium Chloride Carbon Dioxide BUN Creatinine Estimated GFR BUN/Creatinine Ratio Glucose Lactate Calcium Iron 26 L TIBC 480 % Saturation 5 L Transferrin 415 H Total Bilirubin AST ALT Alkaline Phosphatase Troponin I 0.019 NT-Pro-B Natriuret Pep Total Protein Albumin Globulin Albumin/Globulin Ratio Vitamin B12 Folate Procalcitonin SARS-CoV-2 (PCR) Blood Type Antibody Screen Crossmatch 01/17/22 01/17/22 01/17/22 18:29 18:31 19:24 WBC RBC Hgb Hct MCV MCH MCHC RDW Plt Count Neut % (Auto) Lymph % (Auto) Wallace % (Auto) Eos % (Auto) Baso % (Auto) Neut # (Auto) Lymph # (Auto) Wallace # (Auto) Eos # (Auto) Baso # (Auto) Percent Retic D-Dimer Sodium Potassium Chloride Carbon Dioxide BUN Creatinine Estimated GFR BUN/Creatinine Ratio Glucose Lactate Calcium Iron TIBC % Saturation Transferrin Total Bilirubin AST ALT Alkaline Phosphatase Troponin I NT-Pro-B Natriuret Pep Total Protein Albumin Globulin Albumin/Globulin Ratio Vitamin B12 849 Folate > 20.0 H Procalcitonin SARS-CoV-2 (PCR) Negative Blood Type O Positive Antibody Screen Negative Crossmatch See Detail 01/18/22 01/18/22 05:17 05:17 WBC 7.5 RBC 2.93 L Hgb 7.4 L Hct 23.0 L MCV 78.3 L D MCH 25.1 L MCHC 32.0 RDW 19.0 H Plt Count 348 Neut % (Auto) 67.5 Lymph % (Auto) 15.6 L Wallace % (Auto) 11.7 Eos % (Auto) 3.1 Baso % (Auto) 2.1 H Neut # (Auto) 5000 Lymph # (Auto) 1200 Wallace # (Auto) 900 Eos # (Auto) 200 Baso # (Auto) 200 H Percent Retic D-Dimer Sodium 135 L Potassium 3.1 L Chloride 96 L Carbon Dioxide 32 BUN 24 H Creatinine 1.53 H Estimated GFR 35 L BUN/Creatinine Ratio 15.7 Glucose 114 H Lactate Calcium 8.7 Iron TIBC % Saturation Transferrin Total Bilirubin AST ALT Alkaline Phosphatase Troponin I NT-Pro-B Natriuret Pep Total Protein Albumin Globulin Albumin/Globulin Ratio Vitamin B12 Folate Procalcitonin SARS-CoV-2 (PCR) Blood Type Antibody Screen Crossmatch [facility] Medical History (Updated 01/18/22 @ 10:57 by Maria De Jesus Eastman RN) Delvalle esophagus Depression HTN (hypertension) Social History household members: none Smoking Status: Never smoker Assessment & Plan Assessment & Plan narrative: Ms. Martines is a 76W with PMH HTN, depression who presents with shortness of breath, fatigue and found to have severe anemia 1. Symptomatic severe anemia from probable GI bleeding -initial hemoglobin of 3.8, improved to >7 with 2U PRBC. Will continue to follow with Goal Hg >7. -iron panel with an iron deficiency anemia, likely with some anemia of chronic inflammation as well. b12 within normal limits. -patient has noted GI bleeding previously -in ED rectal showed no stool -ordered for protonix gtt for possible upper GI bleed, will continue -also has weight loss, but CT without any obvious malignancyt. -transfuse 2U PRBC -EGD today, possible colonoscopy depending on results. Appreciate general surger y consultation. 2. Acute hypoxemic respiratory failure -initial sats in the 80s on room air, placed on o2 -suspect secondary to severe anemia -xray read as questionable interstitial abnormality -clinically not presenting as a pneumonia, hold antibiotics for now -BNP elevated, possibly undiagnosed CHF but TTE without reduced EF. Unable to assess diastolic dysfunction. Moderate . 3. SANDRA -suspect secondary to hypovolemia due to severe anemia -possibly worsened due to blood pressure meds -did get IV fluids in the ED -suspect will continue to improve with resuscitation with blood 4. Hypertension -hold atenolol, HCTZ 5. Depression -continue escitalopram CODE: DNI, ok for CPR Proxy: Valeria Martines, daughter I have utilized all available resources to reconcile the patient's home medications. Time Spent With Patient Critical Care time: I spent a total of [] minutes of critical care time on this patient's care toda y; this time is exclusive of procedural time.
[2022-01-18] MEDS: LACTATED RINGERS 1,000 ML 150 ML IV (14:51)
[2022-01-18] MEDS: LIDOCAINE 4% SOLN 50 ML 20 ML TOP (15:05)
[2022-01-18] MEDS: fentaNYL 250 MCG/5 ML INJ 75 MCG IV (15:08)
[2022-01-18] MEDS: MIDAZOLAM 5 MG/5 ML VIAL 4 MG IV (15:08)
--- NOTE | 2022-01-18 15:09 | PC.NURSE ---
Day shift: Pt remains off unit at this time (1510).
--- NOTE | 2022-01-18 15:16 | PM.OP.EGD ---
Operative Date/Time/Diagnoses Date of procedure: 01/18/22 Time of procedure: 15:16 Pre-op diagnosis: Anemia Post-op diagnosis: same Procedure & Clinicians Study performed: Esophagogastroduodenoscopy Same procedure as scheduled: Yes Surgeon: Khang Watson Procedure Notes Procedure in detail: Surgeon: Khang Watson MD A timeout was performed. Topical lidocaine was administered to the posterior oropharynx. A bite blocked was placed. The patient was positioned in the left lateral decubitus position. Sedation was administered with Versed and fentanyl. The endoscope was inserted through the bite block and passed through the esophagus and stomach and into the duodenum. The duodenal mucosa appeared normal. The scope was withdrawn into the stomach. 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 There was some mild gastritis in the region corresponding to the presumed antrum. Random biopsies were taken. The scope was retroflexed and a small hiatal hernia was observed. There was no bright red blood or old blood noted in the stomach. There were also some polypoid lesions in the proximal stomach which were biopsied. The scope was withdrawn into the esophagus and no abnormalities were noted. The remainder of the esophagus was normal. The scope was withdrawn. The patient was awakened and brought to recovery. Versed: 4 Fentanyl: 75 Findings: Mild distal gastritis, a few fundic gland type polyps in the proximal stomach and a small hiatal hernia. No evidence for active or recent bleeding. Sedation minutes: 8 Post-procedure Disposition: PACU
--- NOTE | 2022-01-18 16:05 | PC.NURSE ---
Day shift: Pt back in room from EDG at approx 1605. VS WNL. Pt does appear tired and she is also pale. Placed on 2L NC and 92%. Encouraged to cough and deep breath. Has ice water and ice chips at bedside. Will continue with plan of care. Call light in reach and bed alarm is on.
[2022-01-18 19:53] LABS: Hematocrit 22.3 % (36-46)
[2022-01-19] VITALS (10 sets, daily range): BP systolic 140–183; BP diastolic 59–75; PULSE 62–88; RESP 17–20; TEMP 36.3–37.2; O2SAT 91–99
[2022-01-19 06:17] LABS: Add Manual Diff / Slide Review NO; Basophils Absolute Auto 100 /uL (0-100); Basophils Percent Auto 1.9 % (0-2); Eosinophils Absolute Auto 500 /uL (0-450); Eosinophils Percent Auto 7.1 % (2-4); Hematocrit 24.4 % (36-46); Hemoglobin 7.7 g/dL (12.0-16.0); Lymphocytes Absolute Auto 1100 /uL (1100-4500); Lymphocytes Percent Auto 14.6 % (25-40); Mean Corpuscular HGB Conc 31.4 % (30-36); Mean Corpuscular Hemoglobin 24.3 PG (26-34); Mean Corpuscular Volume 77.4 fL (80-100); Monocytes Absolute Auto 1200 /uL (0-900); Monocytes Percent Auto 15.9 % (3-14); Neutrophils Absolute Auto 4400 /uL (1500-7000); Neutrophils Percent Auto 60.5 % (50-75); Platelet Count 282 X10^3/uL (150-400); Red Blood Cell Count 3.15 X10^6/uL (4.0-5.2); Red Cell Distribution Width 19.3 % (11.6-14.8); White Blood Cell Count 7.3 X10^3/uL (4.5-11.0)
[2022-01-19 06:46] LABS: Alanine Aminotransferase 24 IU/L (<35); Albumin 3.4 g/dL (3.5-5.0); Albumin Globulin Ratio 1.5 (1.0-2.8); Alkaline Phosphatase 62 U/L (38-126); Aspartate Aminotransferase 54 IU/L (14-36); BUN Creatinine Ratio 13.2 (6-22); Bilirubin Total 0.5 mg/dL (0.2-1.3); Blood Urea Nitrogen 16 mg/dL (7-17); Calcium 8.5 mg/dL (8.4-10.2); Carbon Dioxide 34 mmol/L (22-32); Chloride 98 mmol/L (98-107); Estimated Glomerular Filt Rate 47 mL/min (>60); Globulin 2.2 g/dL (1.7-4.1); Glucose 84 mg/dL (80-110); HEMOLYSIS 37 (0-50); Potassium 3.2 mmol/L (3.4-5.1); Sodium 139 mmol/L (137-145); Total Protein 5.6 g/dL (6.3-8.2)
[2022-01-19] MEDS: PANTOPRAZOLE 40 MG VIAL IV ×2 (09:15→21:00)
[2022-01-19 10:36] LABS: Magnesium 1.7 mg/dL (1.6-2.3)
[2022-01-19] MEDS: POTASSIUM CHLORIDE 20 MEQ/15 ML UDC 40 MEQ PO (10:40)
--- NOTE | 2022-01-19 10:47 | CM.DPC ---
DCP Cont: Per MD, pt had EGD with Surgeon yesterday 01/18/22 and tolerated well and results appear normal and Surgeon recommending colonoscopy today. Unclear what time pt to have procedure in OR but during MDR rounds confirmed pt on the schedule for today sometime. Pt alert and oriented in her room and appreciative of care and confirms she is prepping for colonoscopy today and is hopeful for d/c back home with DIL assist. Plan: SW to follow after colonoscopy sometime today towards confirming pt steady and safe for d/c home with family assist when medically stable to discharge and any further identified needs. Krista Gonzalez MSW
[2022-01-19] MEDS: MAGNESIUM CHLORIDE 64 MG TABLET 128 MG PO (12:48)
--- NOTE | 2022-01-19 13:59 | PM.PN.1 ---
Subjective Subjective Date Patient Seen: 01/19/22 Interval history: continues to feel short of breath today, mainly with exertion, but overall feels much improved. CT scan showed no obvious malignancy. General surgery performed EGD, with no evidence of recent or active bleeding. Possible C-scope pending surgery recommendations. Exam Vital Signs (past 8 hours): - 01/19/22 07:26 01/19/22 07:30 01/19/22 11:02 Temperature 98.4 F 99.0 F Pulse Rate 84 86 Respiratory Rate 18 18 Blood Pressure 147/59 H 160/64 H Pulse Oximetry 93 93 94 Oxygen Delivery Method Nasal Cannula Oxygen Flow Rate 2 2 0 01/19/22 12:00 Temperature 99.0 F Pulse Rate 86 Respiratory Rate 18 Blood Pressure 160/64 H Pulse Oximetry 94 Oxygen Delivery Method Oxygen Flow Rate 0 Oxygen Delivery Method Nasal Cannula Oxygen Flow Rate 0 Narrative Exam Narrative: GEN: elderly female, no acute distress, winded with prolonged sentences. HEENT: pale conjunctiva, PERRL NECK: trachea midline, no JVD CV: regular rate and rhythm, no murmurs PULM: clear bilaterally, no wheezes, rhonchi, rales ABD: soft, nontender, nondistended, no organomegaly, normal bowel sounds EXT: warm and well perfused, with no edema NEURO: awake, alert, oriented, with no focal deficits Objective Labs Result Diagrams: 01/19/22 05:26 01/19/22 05:26 Labs: Laboratory Results - last 24 hr 01/18/22 01/19/22 01/19/22 19:45 05:26 05:26 WBC 7.3 RBC 3.15 L Hgb 7.0 L 7.7 L Hct 22.3 L 24.4 L MCV 77.4 L MCH 24.3 L MCHC 31.4 RDW 19.3 H Plt Count 282 Neut % (Auto) 60.5 Lymph % (Auto) 14.6 L Petroleum % (Auto) 15.9 H Eos % (Auto) 7.1 H Baso % (Auto) 1.9 Neut # (Auto) 4400 Lymph # (Auto) 1100 [place]roleum # (Auto) 1200 H Eos # (Auto) 500 H Baso # (Auto) 100 Sodium 139 Potassium 3.2 L Chloride 98 Carbon Dioxide 34 H BUN 16 Creatinine 1.21 H Estimated GFR 47 L BUN/Creatinine Ratio 13.2 Glucose 84 Calcium 8.5 Magnesium Total Bilirubin 0.5 AST 54 H ALT 24 Alkaline Phosphatase 62 Total Protein 5.6 L Albumin 3.4 L Globulin 2.2 Albumin/Globulin Ratio 1.5 01/19/22 05:26 WBC RBC Hgb Hct MCV MCH MCHC RDW Plt Count Neut % (Auto) Lymph % (Auto) Petroleum % (Auto) Eos % (Auto) Baso % (Auto) Neut # (Auto) Lymph # (Auto) Petroleum # (Auto) Eos # (Auto) Baso # (Auto) Sodium Potassium Chloride Carbon Dioxide BUN Creatinine Estimated GFR BUN/Creatinine Ratio Glucose Calcium Magnesium 1.7 Total Bilirubin AST ALT Alkaline Phosphatase Total Protein Albumin Globulin Albumin/Globulin Ratio [facility] Medical History (Updated 01/18/22 @ 10:57 by Maria De Jesus Eastman, CHEIKH) Delvalle esophagus Depression HTN (hypertension) Social History household members: none Smoking Status: Never smoker Assessment & Plan Assessment & Plan narrative: Ms. Martines is a 76W with PMH HTN, depression who presents with shortness of breath, fatigue and found to have severe anemia 1. Symptomatic severe anemia from probable GI bleeding -initial hemoglobin of 3.8, improved to >7 with 2U PRBC. Will continue to follow with Goal Hg >7. -iron panel with an iron deficiency anemia, likely with some anemia of chronic inflammation as well. b12 within normal limits. -ordered for protonix gtt for possible upper GI bleed, will continue -also has weight loss, but CT without any obvious malignancy. -transfuse 2U PRBC -EGD 01/19 without obvious source of bleeding. C-scope possibly with general surgery. 2. Acute hypoxemic respiratory failure -initial sats in the 80s on room air, placed on o2 -suspect secondary to severe anemia -xray read as questionable interstitial abnormality -clinically not presenting as a pneumonia, hold antibiotics for now -BNP elevated, possibly undiagnosed CHF but TTE without reduced EF. Unable to assess diastolic dysfunction. Moderate . 3. SANDRA -suspect secondary to hypovolemia due to severe anemia -possibly worsened due to blood pressure meds -did get IV fluids in the ED -suspect will continue to improve with resuscitation with blood, improved from 1.53 to 1.21 today. 4. Hypertension -hold atenolol, HCTZ. restart after c-scope to avoid hypotension with prep. 5. Depression -continue escitalopram CODE: DNI, ok for CPR Proxy: Valeria Martines, daughter I have utilized all available resources to reconcile the patient's home medications. Time Spent With Patient Critical Care time: I spent a total of [] minutes of critical care time on this patient's care today; this time is exclusive of procedural time.
[2022-01-19] MEDS: SODIUM CHLORIDE 0.9% FLUSH 10 ML IV (21:00)
[2022-01-19] MEDS: ACETAMINOPHEN 325 MG TABLET 650 MG PO (21:07)
[2022-01-20 04:15] VITALS: BP 164/53; PULSE 89; RESP 14; TEMP 36.7; O2SAT 94
--- NOTE | 2022-01-20 04:22 | PC.NURSE ---
Patient requested not to activate her bed alarm. States I'm just getting up to the BSC, besides I had no fall @ home lately. Denies any dizziness & reported a little stronger tonight. Reminded to call nursing staff for any assistance. Will continue POC & monitor.
[2022-01-20 07:00] VITALS: O2SAT 96
[2022-01-20 07:11] LABS: Alanine Aminotransferase 22 IU/L (<35); Albumin 3.3 g/dL (3.5-5.0); Albumin Globulin Ratio 1.5 (1.0-2.8); Alkaline Phosphatase 71 U/L (38-126); Aspartate Aminotransferase 31 IU/L (14-36); BUN Creatinine Ratio 12.4 (6-22); Bilirubin Total 0.3 mg/dL (0.2-1.3); Blood Urea Nitrogen 15 mg/dL (7-17); Carbon Dioxide 34 mmol/L (22-32); Chloride 101 mmol/L (98-107); Estimated Glomerular Filt Rate 47 mL/min (>60); Globulin 2.2 g/dL (1.7-4.1); Glucose 102 mg/dL (80-110); HEMOLYSIS < 15 (0-50); Potassium 3.1 mmol/L (3.4-5.1); Sodium 138 mmol/L (137-145); Total Protein 5.5 g/dL (6.3-8.2)
[2022-01-20 07:22] LABS: Add Manual Diff / Slide Review NO; Basophils Absolute Auto 100 /uL (0-100); Basophils Percent Auto 2.1 % (0-2); Eosinophils Absolute Auto 500 /uL (0-450); Eosinophils Percent Auto 8.1 % (2-4); Hematocrit 22.3 % (36-46); Hemoglobin 7.1 g/dL (12.0-16.0); Lymphocytes Absolute Auto 900 /uL (1100-4500); Lymphocytes Percent Auto 14.9 % (25-40); Mean Corpuscular HGB Conc 31.6 % (30-36); Mean Corpuscular Hemoglobin 24.6 PG (26-34); Mean Corpuscular Volume 77.9 fL (80-100); Monocytes Absolute Auto 900 /uL (0-900); Monocytes Percent Auto 14.6 % (3-14); Neutrophils Absolute Auto 3800 /uL (1500-7000); Neutrophils Percent Auto 60.3 % (50-75); Platelet Count 312 X10^3/uL (150-400); Red Blood Cell Count 2.87 X10^6/uL (4.0-5.2); White Blood Cell Count 6.2 X10^3/uL (4.5-11.0)
[2022-01-20] MEDS: PANTOPRAZOLE 40 MG VIAL IV (09:45)
[2022-01-20] MEDS: SODIUM CHLORIDE 0.9% FLUSH 10 ML IV (09:45)
[2022-01-20 11:42] VITALS: BP 166/69; PULSE 87; RESP 17; TEMP 36.6; O2SAT 93
--- NOTE | 2022-01-20 12:48 | CM.DPNOTE ---
Addendum entered by Page Yeh R.N. 01/20/22 13:30: IMM given to patient, verbalizes understanding. Patient states this afternoon she is being discharged and has notified her daughter. RILEY Original Note: Discharge Planning Note: Met with patient, she is pleasant, alert and oriented. EGD was negative yesterday. Unsure of when colonoscopy is planned. (Will it be inpatient vs outpatient?) Patient is independent in ADLs, with decreased activity tolerance. Patient declines Home Health. 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 Plan: When medically cleared, patient to return home to previous living situation; she lives in [facility] in [place]. Her supportive daughter in law lives a mile away and helps patient as needed. Ana Yeh RN, DCP
[2022-01-20] MEDS: methocarbamoL 500 MG TABLET 750 MG PO (13:10)
[2022-01-20] MEDS: atenoloL 25 MG TABLET PO (13:11)
--- NOTE | 2022-01-20 13:35 | P.DS_ITS ---
History of Present Illness History of Present Illness Date Patient Seen: 01/20/22 Chief complaint: SOB/Chest Pain/Numbness In Arms/Leg Swelling Narrative: Per H&P: Ms. Martines is a 76W with PMH of depression, HTN, GERD, Alexander's esophagus who presents with fatigue, lightheaded, and short of breath. She states she has a history of peptic ulcers, and from her description had a perforation decades ago after which she had part of her stomach surgically removed. She states she has a history of pernicious anemia and possible iron deficiency, but is not currently on medications for these. She has noted intermittend red blood in her stool for quite some time. She has last colonoscopy approximately three years ago found to have diverticulosis, and she has alexander's esophagus. She has also had epigastric discomfort chronically. No vomiting blood, no fevers/chills. No coughing. She has no known history of cardiac disease. She has noted a 25lb weight loss within the last year and states this is intentional. In the ED workup was done, vitals notable for mild tachypnea and hypoxemia to 89% on room air. She was placed on nasal cannula. Labs notable for WBC 6.2, hgb 3.8, plts 404. Na 133, K 3.0, BUN 29, creatinine 1.53. Lactate 1.0. Procal 0.07. BNP 6820. Chest xray read a mild diffuse reticulonodular pulmonary opacity. She was ordered for protonix, IV fluid, and blood and admitted for further treatment. Social history: no smoking, rare alcohol use Family history: stomach cancer Discharge Providers Provider Date of admission: 01/17/22 21:09 Discharge Date: 01/20/22 Consults: 01/18/22 07:23 Consult to General Surgery Routine Comment: Consulting Provider: Khang Watson Reason for consultation: gi bleed Has provider been notified: Yes Discharge provider: Meghana Ann MD Summary Hospital Course Discharge Diagnosis: Symptomatic severe anemia, likely secondary to chronic GI bleeding Acute hypoxemic respiratory failure, resolved, likely secondary to anemia SANDRA, resolved Hypertension, chronic, stable Depression, chronic, stable Hypokalemia, repleting Hospital Course: Patient presented to the emergency department with complaints of shortness of breath, chest pain, weakness, and was found to have a hemoglobin of 3.8. She had had some report of chronic abdominal discomfort her and some dark stool for quite some time. Previously had a colonoscopy 3 years ago with diverticulosis found. She also reported a history of Alexander's esophagus. Patient was admitted, received 2 units of packed red blood cells, and general surgery consultation was obtained. After transfusion and stabilization, she underwent an EGD on 01/18/2022, which revealed mild distal gastritis, a few fundic gland type polyps in the proximal stomach and a small hiatal hernia. There is no evidence for active or recent bleeding. Recommendations were for consideration of colonoscopy. However, as the patient's hemoglobin remained stable since admission, the recommendation from the general surgical team was that patient follow-up on an outpatient basis for colonoscopy. Patient's hemoglobin remains stable and above 7.0 from January 18 after transfusion until time of discharge on January 20. Patient did pass 1 small stool on the date of discharge which she described as being brown in color and shape ?like sausage links ?. Patient is discharged in stable condition. Status at Discharge Cognitive/behavioral status at discharge: at baseline, oriented Functional status at discharge: independent ambulation Overall status at discharge: patient is progressing back to baseline Time Spent with Patient Time spent: Greater than 30 minutes (35 minute spent coordinating discharge) Exam Vital Signs (past 8 hours): - 01/20/22 11:42 Temperature 97.8 F Pulse Rate 87 Respiratory Rate 17 Blood Pressure 166/69 H Pulse Oximetry 93 Oxygen Flow Rate 0 Oxygen Delivery Method Nasal Cannula Oxygen Flow Rate 0 Narrative Exam Narrative: GEN: Alert and oriented x 3, NAD HEENT:NC, Face symmetric CHEST: Respiratory excursions symmetric, CTAB CV: RRR, no M/R/G ABD: Soft, NT/ND, BT present in all 4 quadrants, no organomegaly or masses EXTR: warm, well perfused, no C/C/E SKIN: warm and dry, no rash NEURO: Alert and oriented x 3, nonfocal Objective Labs Result Diagrams: 01/20/22 06:20 01/20/22 06:20 Labs: Laboratory Results - last 24 hr 01/20/22 01/20/22 06:20 06:20 WBC 6.2 RBC 2.87 L Hgb 7.1 L Hct 22.3 L MCV 77.9 L MCH 24.6 L MCHC 31.6 RDW 20.0 H Plt Count 312 Neut % (Auto) 60.3 Lymph % (Auto) 14.9 L [place] % (Auto) 14.6 H Eos % (Auto) 8.1 H Baso % (Auto) 2.1 H Neut # (Auto) 3800 Lymph # (Auto) 900 L [place] # (Auto) 900 Eos # (Auto) 500 H Baso # (Auto) 100 Sodium 138 Potassium 3.1 L Chloride 101 Carbon Dioxide 34 H BUN 15 Creatinine 1.21 H Estimated GFR 47 L BUN/Creatinine Ratio 12.4 Glucose 102 Calcium 9.0 Total Bilirubin 0.3 AST 31 ALT 22 Alkaline Phosphatase 71 Total Protein 5.5 L Albumin 3.3 L Globulin 2.2 Albumin/Globulin Ratio 1.5 [facility] Medical History (Updated 01/18/22 @ 10:57 by Maria De Jesus Eastman RN) Alexander esophagus Depression HTN (hypertension) Social History household members: none Smoking Status: Never smoker Discharge Plan Discharge Plan Patient Disposition: Home Provider Discharge Comment: Monitor your stool-return to the ED for black/tarry/maroon stool or if you are passing clots. Return to ED for any vomit that looks like coffee grounds or inability to hold down food/liquids. Please contact Dr. Watson's office on Saturday to schedule a follow up appointment and get a colonoscopy scheduled. Return to the ED for any shortness of breath/chest pain/lightheadedness Recommend follow-up electrolyte panel next week to recheck your low potassium levels. Discharge orders & Medications Prescriptions: New pantoprazole [Protonix] 40 mg tablet,delayed release (DR/EC) 40 mg PO BID Qty: 60 0RF Continued atenolol 25 mg tablet 25 mg PO BID Label Comments: TAKE 1 TABLET BY MOUTH TWICE DAILY methocarbamol 750 mg tablet 750 mg PO BID PRN (Reason: Pain (Scale Score 4-6)) hydrochlorothiazide 25 mg tablet 25 mg PO DAILY Label Comments: TAKE 1 TABLET BY MOUTH ONCE DAILY escitalopram oxalate 5 mg tablet 5 mg PO TID Label Comments: TAKE 3 TABLETS BY MOUTH ONCE DAILY duloxetine 20 mg capsule,delayed release(DR/EC) 20 mg PO DAILY Label Comments: TAKE 2 CAPSULES BY MOUTH ONCE DAILY Discontinued omeprazole 20 mg capsule,delayed release(DR/EC) 20 mg PO BID Label Comments: TAKE 1 CAPSULE BY MOUTH TWICE DAILY Medication counseling provided by Pharmacist: No Follow up/Referrals: Khang Watson MD [Physician] - (Follow-up for colonoscopy) Miscellaneous,DoctorMD [Non-Staff] - Diet/Activity/Treatments Diet: Regular Activity: As tolerated Oxygen: N/A Visit Report/Discharge Packet Instructions: Anemia, DI for Gastroesophageal Reflux Disease (GERD), DI for Gastritis
[2022-01-20] MEDS: POTASSIUM CHLORIDE 20 MEQ TAB 40 MEQ PO (13:37)
--- NOTE | 2022-01-20 17:42 | PC.NURSE ---
Pt AOx4, VS stable. Pt denied pain today. She was given discharge instructions and IV removed, IV intact. Grandson picked her up today at 0500.
== END 2022-01-20 17:00 | disposition home or self-care (01) | DRG 377 ==
LOC: ED 20:15 → AC 21:10
PROVIDERS: Emergency Medicine; Internal Medicine; Surgery; Admitting Provider Internal Medicine; Emergency Provider Emergency Medicine; Referring Provider Emergency Medicine; Visit Provider Internal Medicine
PROC: 0DJ08ZZ Inspection of Upper Intestinal Tract, Via Natural or Artificial Opening Endoscopic (ICD-10-PCS; CPT 43235; principal; 2022-01-18 14:45)
DX: K29.51 Unspecified chronic gastritis with bleeding (principal); J96.01 Acute respiratory failure with hypoxia; N17.9 Acute kidney failure, unspecified; D50.0 Iron deficiency anemia secondary to blood loss (chronic); K44.9 Diaphragmatic hernia without obstruction or gangrene; K31.7 Polyp of stomach and duodenum; K29.70 Gastritis, unspecified, without bleeding; F32.A Depression, unspecified; I10 Essential (primary) hypertension; E87.6 Hypokalemia; K21.9 Gastro-esophageal reflux disease without esophagitis; Z20.822 Contact with and (suspected) exposure to COVID-19
CPT/HCPCS: 36415; 36430; 43239; 71046; 71260; 74177; 80048; 80053; 82607; 82746; 83540; 83550; 83605; 83735; 83880; 84145; 84484; 85014; 85018; 85025; 85045; 85379; 86850; 86900; 86901; 87635; 93306; 94640; 94760; 96365; 96366; 96375; 99152; 99232; 99284; C9803; P9016; C9113; J2250; J3010

== ENCOUNTER → 2022-01-29 14:28 | Outpatient (CLI) | payer OTHER, SELFPAY ==
[2022-01-17 21:16] VITALS: BMI 25263.0
[2022-01-29 15:18] LABS: Add Manual Diff / Slide Review NO; Basophils Absolute Auto 200 /uL (0-100); Basophils Percent Auto 2.2 % (0-2); Eosinophils Absolute Auto 100 /uL (0-450); Eosinophils Percent Auto 1.6 % (2-4); Hematocrit 21.8 % (36-46); Lymphocytes Absolute Auto 1000 /uL (1100-4500); Mean Corpuscular HGB Conc 31.5 % (30-36); Mean Corpuscular Hemoglobin 24.1 PG (26-34); Mean Corpuscular Volume 76.4 fL (80-100); Monocytes Absolute Auto 700 /uL (0-900); Monocytes Percent Auto 8.5 % (3-14); Neutrophils Absolute Auto 5800 /uL (1500-7000); Neutrophils Percent Auto 74.7 % (50-75); Platelet Count 501 X10^3/uL (150-400); Red Blood Cell Count 2.85 X10^6/uL (4.0-5.2); Red Cell Distribution Width 21.5 % (11.6-14.8); White Blood Cell Count 7.7 X10^3/uL (4.5-11.0)
[2022-01-29 15:38] LABS: Hemoglobin 6.9 g/dL (12.0-16.0)
[2022-01-29 15:41] LABS: Alanine Aminotransferase 15 IU/L (<35); Albumin Globulin Ratio 1.9 (1.0-2.8); Alkaline Phosphatase 71 U/L (38-126); Aspartate Aminotransferase 27 IU/L (14-36); BUN Creatinine Ratio 21.9 (6-22); Bilirubin Total 0.2 mg/dL (0.2-1.3); Blood Urea Nitrogen 30 mg/dL (7-17); Calcium 9.6 mg/dL (8.4-10.2); Carbon Dioxide 31 mmol/L (22-32); Chloride 97 mmol/L (98-107); Estimated Glomerular Filt Rate 41 mL/min (>60); Globulin 2.1 g/dL (1.7-4.1); Glucose 115 mg/dL (80-110); HEMOLYSIS < 15 (0-50); Potassium 4.4 mmol/L (3.4-5.1); Sodium 135 mmol/L (137-145); Total Protein 6.1 g/dL (6.3-8.2)
[2022-01-29 15:46] LABS: Anisocytosis 1+; Hypochromasia 1+
[2022-01-29 15:47] LABS: Microcytosis 1+
== END ==
PROVIDERS: Referring Provider Surgery; Visit Provider Surgery
DX: D64.9 Anemia, unspecified (principal)
CPT/HCPCS: 36415; 80053; 85025

== ENCOUNTER 2022-01-29 17:23 | Observation (INO) | payer OTHER, SELFPAY ==
[2022-01-17 21:16] VITALS: BMI 25263.0
[2022-01-29] VITALS (17 sets, daily range): BP systolic 120–155; BP diastolic 52–68; PULSE 72–84; RESP 15–38; TEMP 36.3–37.1; O2SAT 94–98; BMI 25.6
--- NOTE | 2022-01-29 17:33 | DI.RAD.S_ITS ---
PROCEDURE: XR CHEST 1V INDICATIONS: chest pain TECHNIQUE: One view of the chest was acquired. COMPARISON: [facility], CR, XR CHEST 2V, 01/17/2022, 18:19. FINDINGS: Surgical changes and devices: Stable cervical spine and lumbar spine fixation hardware. Lungs and pleura: Lungs are clear. No pleural effusions or pneumothorax. Mediastinum: Mediastinal contours appear normal. Heart size is normal. Bones and chest wall: No suspicious bony lesions. Overlying soft tissues appear unremarkable. IMPRESSION: No acute cardiopulmonary disease process. Dictated by: Tayler Davis MD, PhD on 01/29/2022 at 17:01 Approved by: Tayler Davis MD, PhD on 01/29/2022 at 17:02
[2022-01-29 18:43] LABS: Add Manual Diff / Slide Review NO; Basophils Absolute Auto 100 /uL (0-100); Basophils Percent Auto 0.9 % (0-2); Eosinophils Absolute Auto 100 /uL (0-450); Eosinophils Percent Auto 2.2 % (2-4); Hematocrit 21.4 % (36-46); Lymphocytes Absolute Auto 1100 /uL (1100-4500); Lymphocytes Percent Auto 16.8 % (25-40); Mean Corpuscular HGB Conc 31.1 % (30-36); Mean Corpuscular Hemoglobin 23.8 PG (26-34); Mean Corpuscular Volume 76.7 fL (80-100); Monocytes Absolute Auto 600 /uL (0-900); Monocytes Percent Auto 9.4 % (3-14); Neutrophils Absolute Auto 4600 /uL (1500-7000); Neutrophils Percent Auto 70.7 % (50-75); Platelet Count 476 X10^3/uL (150-400); Red Blood Cell Count 2.78 X10^6/uL (4.0-5.2); Red Cell Distribution Width 21.4 % (11.6-14.8); White Blood Cell Count 6.5 X10^3/uL (4.5-11.0)
[2022-01-29 18:49] LABS: Hemoglobin 6.6 g/dL (12.0-16.0)
[2022-01-29 18:55] LABS: Alanine Aminotransferase 16 IU/L (<35); Albumin 3.9 g/dL (3.5-5.0); Albumin Globulin Ratio 1.6 (1.0-2.8); Alkaline Phosphatase 72 U/L (38-126); Aspartate Aminotransferase 48 IU/L (14-36); BUN Creatinine Ratio 23.9 (6-22); Bilirubin Total 0.2 mg/dL (0.2-1.3); Blood Urea Nitrogen 33 mg/dL (7-17); Calcium 9.2 mg/dL (8.4-10.2); Carbon Dioxide 30 mmol/L (22-32); Chloride 97 mmol/L (98-107); Creatine Kinase < 20 U/L (30-135); Estimated Glomerular Filt Rate 40 mL/min (>60); Globulin 2.4 g/dL (1.7-4.1); Glucose 115 mg/dL (80-110); HEMOLYSIS 23 (0-50); Lipase 106 U/L (23-300); Magnesium 2.1 mg/dL (1.6-2.3); Potassium 4.2 mmol/L (3.4-5.1); Sodium 133 mmol/L (137-145); Total Protein 6.3 g/dL (6.3-8.2)
[2022-01-29 19:05] LABS: Troponin I < 0.012 ng/mL (0.01-0.034)
[2022-01-29 19:13] LABS: COVID19 -Nasal RAPID Negative (Negative)
[2022-01-29 19:16] LABS: Anisocytosis 2+; Hypochromasia 2+; Target Cells 2+
--- NOTE | 2022-01-29 19:45 | ED_ITS ---
HPI - Weakness General Chief complaint: Syncope Stated complaint: Dizzy, recent blood transfusion Time Seen by Provider: 01/29/22 18:21 Source: patient and EMS Mode of arrival: EMS History of Present Illness HPI Narrative: Patient here for anemia. It has dropped from 6.9-6.6 this afternoon. Patient denies any brisk bleeding. No hematochezia or melena. Patient seen here last month and had transfusion and sent home. Radha for colonoscopy next week with Dr. Watson. February 08. He did see patient in the office today and sent her here. I spoke to him by phone. He would like patient admitted overnight transfused and look at the schedule tomorrow for endoscopy. Patient states has felt very tired and weak, near-syncope but no passing out or fall or injury. Denies any pain anywhere. Related Data Home Medications Medication Instructions Recorded Confirmed atenolol 25 mg tablet 25 mg PO BID 01/17/22 01/29/22 duloxetine 20 mg capsule,delayed 20 mg PO DAILY 01/17/22 01/29/22 release escitalopram oxalate 5 mg tablet 5 mg PO TID 01/17/22 01/29/22 hydrochlorothiazide 25 mg tablet 25 mg PO DAILY 01/17/22 01/29/22 methocarbamol 750 mg tablet 750 mg PO BID PRN Pain (Scale 01/17/22 01/29/22 Score 4-6) Previous Rx's Medication Instructions Recorded pantoprazole 40 mg tablet,delayed 40 mg PO BID #60 tabs 01/20/22 release (Protonix) Allergies Allergy/AdvReac Type Severity Reaction Status Date / Time aripiprazole [From [facility]] Allergy Unknown Verified 01/29/22 14:01 Penicillins Allergy Unknown Verified 01/29/22 14:01 adhesive AdvReac Verified 01/29/22 14:01 Review of Systems Review of Systems Narrative: GENERAL: Denies chills, positive for fatigue, malaise, negative for fever, sweats. HEENT: Denies sinus pain, ear pain, sore throat RESPIRATORY: Denies dyspnea, cough CARDIOVASCULAR: Denies chest pain, palpitations GASTROINTESTINAL: Denies nausea, vomiting, abdominal pain : Denies dysuria, frequency, hematuria MUSCULOSKELETAL: denies muscle or bony pain SKIN: Denies rash, skin lesions NEUROLOGIC: Denies weakness, numbness ROS Unobtainable: All systems reviewed & are unremarkable except as noted in HPI and below Patient History Medical History Delvalle esophagus Depression HTN (hypertension) Family History (Updated 01/30/22 @ 00:54 by SHANA Palmer) Mother Alive and well Father Stomach cancer Daughter Heart transplant rejection Congenital heart defect Social History household members: none Smoking Status: Never smoker alcohol intake: current Smoking Status: Never smoker alcohol intake frequency: a few times a week Substance Use Type: does not use Exam Initial Vital Signs Initial Vital Signs: Vital Signs Pulse Rate 76 01/29/22 17:26 Blood Pressure 137/62 01/29/22 17:26 Pulse Oximetry 98 01/29/22 17:26 GENERAL: in no distress, not toxic not dyspneic HEAD: Normocephalic. EYES: Pupils equal round No scleral icterus. Pale bilateral conjunctiva ENT: Mucous membranes moist. NECK: Trachea midline. CARDIOVASCULAR: Regular rate and rhythm without murmurs RESPIRATORY: Clear to auscultation. Breath sounds equal bilaterally. No wheezes, rales, or rhonchi. 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 Positive Hemoccult. Black stool on glove. No bright red blood EXTREMITIES: No gross deformities. BACK: No flank tenderness. NEURO: AOx4. SKIN: Warm and dry PSYCH: Not anxious, is cooperative Course Course Course Narrative: No new issues during course of stay Decision to Admit Date: 01/29/22 Decision to Admit time: 19:48 Orders Ordered: Acetaminophen (Acetaminophen 325 Mg Tablet) 650 mg PO Q6HR PRN PRN Reason: Fever/Mild Pain (1-3) Last Admin: 01/30/22 02:22 Dose: 650 mg Documented By: SOFIA Atenolol (Atenolol 25 Mg Tablet) 25 mg PO BID [facility] Last Admin: 01/29/22 22:36 Dose: 25 mg Documented By: SOFIA Duloxetine HCl (Duloxetine 20 Mg Capsule) 20 mg PO DAILY [facility] Escitalopram Oxalate (Escitalopram 10 Mg Tablet) 5 mg PO TID [facility] Last Admin: 01/29/22 22:36 Dose: 5 mg Documented By: AGW Ondansetron HCl (Ondansetron 4 Mg/2 Ml Inj) 4 mg IV Q8HR PRN PRN Reason: Nausea And Vomiting Pantoprazole Sodium (Pantoprazole 40 Mg Vial) 40 mg IV BID JENNY Discontinued Medications Pantoprazole Sodium (Pantoprazole 40 Mg Vial) 40 mg IV NOW ONE Stop: 01/29/22 20:03 Last Admin: 01/29/22 20:18 Dose: 40 mg Documented By: CN Reevaluation(s) Reevaluation #1: Patient does agree for transfusion and for admit Time: 19:48 Consultations Consultation #1: Spoke with Dr. Watson. He would like patient admitted to hospitalist. Get transfusion. Recheck hemoglobin the morning and look at surgical schedule for endoscopy Time: 19:48 Consultation #2: Spoke with hospitalist, Mishel, will admit. She would only like 1 unit to be transfused Time: 20:00 Vital Signs Vital signs: Vital Signs - 8 hr 01/29/22 17:54 01/29/22 17:26 01/29/22 17:26 Temperature 98.7 F Pulse Rate 72 76 Respiratory Rate 20 Blood Pressure 137/62 137/62 Pulse Oximetry 98 98 Oxygen Delivery Method Room Air 01/29/22 17:30 01/29/22 18:00 01/29/22 18:24 Temperature Pulse Rate 73 72 78 Respiratory Rate 26 H 34 H 29 H Blood Pressure Pulse Oximetry 97 97 95 Oxygen Delivery Method 01/29/22 18:24 01/29/22 18:30 01/29/22 18:30 Temperature Pulse Rate 79 Respiratory Rate 23 Blood Pressure 151/66 H 148/68 H Pulse Oximetry 96 Oxygen Delivery Method 01/29/22 19:00 01/29/22 19:00 Temperature Pulse Rate 75 Respiratory Rate 34 H Blood Pressure 146/67 H Pulse Oximetry 97 Oxygen Delivery Method MDM - Weakness Differential Diagnosis Differential diagnosis: Likely anemia and other (GI bleed) Lab Data Result diagrams: 01/30/22 06:15 01/29/22 18:18 Labs: Lab Results 01/29/22 01/29/22 01/29/22 Range/Units 18:18 18:18 18:18 WBC 6.5 (4.5-11.0) X10^3/uL RBC 2.78 L (4.0-5.2) X10^6/uL Hgb 6.6 L* (12.0-16.0) g/dL Hct 21.4 L (36-46) % MCV 76.7 L (80-100) fL MCH 23.8 L (26-34) PG MCHC 31.1 (30-36) % RDW 21.4 H (11.6-14.8) % Plt Count 476 H (150-400) X10^3/uL Neut % (Auto) 70.7 (50-75) % Lymph % (Auto) 16.8 L (25-40) % [place] % (Auto) 9.4 (3-14) % Eos % (Auto) 2.2 (2-4) % Baso % (Auto) 0.9 (0-2) % Neut # (Auto) 4600 (2285-5115) /uL Lymph # (Auto) 1100 (6447-6677) /uL [place] # (Auto) 600 (0-900) /uL Eos # (Auto) 100 (0-450) /uL Baso # (Auto) 100 (0-100) /uL RBC Morphology See below Hypochromasia 2+ H Anisocytosis 2+ H Target Cells 2+ H Sodium 133 L (137-145) mmol/L Potassium 4.2 (3.4-5.1) mmol/L Chloride 97 L (98-107) mmol/L Carbon Dioxide 30 (22-32) mmol/L BUN 33 H (7-17) mg/dL Creatinine 1.38 H (0.52-1.04) mg/dL Estimated GFR 40 L (>60) mL/min BUN/Creatinine Ratio 23.9 H (6-22) Glucose 115 H (80-110) mg/dL Calcium 9.2 (8.4-10.2) mg/dL Magnesium 2.1 (1.6-2.3) mg/dL Total Bilirubin 0.2 (0.2-1.3) mg/dL AST 48 H (14-36) IU/L ALT 16 (<35) IU/L Alkaline Phosphatase 72 (38-126) U/L Total Creatine Kinase < 20 L (30-135) U/L CK-MB (CK-2) TNP CK-MB (CK-2) Rel Index TNP Troponin I < 0.012 (0.01-0.034) ng/mL Total Protein 6.3 (6.3-8.2) g/dL Albumin 3.9 (3.5-5.0) g/dL Globulin 2.4 (1.7-4.1) g/dL Albumin/Globulin Ratio 1.6 (1.0-2.8) Lipase 106 (23-300) U/L Urine Color Urine Appearance Urine pH (4.5-8.0) Ur Specific [place] (1.000-1.035) Urine Protein (Negative) Urine Glucose (UA) (Negative) g/dL Urine Ketones (NEGATIVE) Urine Occult Blood (Negative) Urine Nitrate (Negative) Urine Bilirubin (NEGATIVE) Urine Urobilinogen (0.2) E.U./dL Ur Leukocyte Esterase (NEGATIVE) Urine RBC (0-5/HPF) Urine WBC (0-5/HPF) Ur Squamous Epith Cells (0-5/HPF) Urine Bacteria (None) Ur Culture Indicated? SARS-CoV-2 (PCR) (Negative) Blood Type O Positive Antibody Screen Negative Crossmatch See Detail 01/29/22 01/29/22 Range/Units 18:50 19:19 WBC (4.5-11.0) X10^3/uL RBC (4.0-5.2) X10^6/uL Hgb (12.0-16.0) g/dL Hct (36-46) % MCV (80-100) fL MCH (26-34) PG MCHC (30-36) % RDW (11.6-14.8) % Plt Count (150-400) X10^3/uL Neut % (Auto) (50-75) % Lymph % (Auto) (25-40) % [place] % (Auto) (3-14) % Eos % (Auto) (2-4) % Baso % (Auto) (0-2) % Neut # (Auto) (3022-2646) /uL Lymph # (Auto) (9764-3045) /uL [place] # (Auto) (0-900) /uL Eos # (Auto) (0-450) /uL Baso # (Auto) (0-100) /uL RBC Morphology Hypochromasia Anisocytosis Target Cells Sodium (137-145) mmol/L Potassium (3.4-5.1) mmol/L Chloride (98-107) mmol/L Carbon Dioxide (22-32) mmol/L BUN (7-17) mg/dL Creatinine (0.52-1.04) mg/dL Estimated GFR (>60) mL/min BUN/Creatinine Ratio (6-22) Glucose (80-110) mg/dL Calcium (8.4-10.2) mg/dL Magnesium (1.6-2.3) mg/dL Total Bilirubin (0.2-1.3) mg/dL AST (14-36) IU/L ALT (<35) IU/L Alkaline Phosphatase (38-126) U/L Total Creatine Kinase (30-135) U/L CK-MB (CK-2) CK-MB (CK-2) Rel Index Troponin I (0.01-0.034) ng/mL Total Protein (6.3-8.2) g/dL Albumin (3.5-5.0) g/dL Globulin (1.7-4.1) g/dL Albumin/Globulin Ratio (1.0-2.8) Lipase (23-300) U/L Urine Color Yellow Urine Appearance Clear Urine pH 7.0 (4.5-8.0) Ur Specific [place] 1.010 (1.000-1.035) Urine Protein Negative (Negative) Urine Glucose (UA) Negative (Negative) g/dL Urine Ketones Negative (NEGATIVE) Urine Occult Blood Negative (Negative) Urine Nitrate Negative (Negative) Urine Bilirubin Negative (NEGATIVE) Urine Urobilinogen 0.2 (0.2) E.U./dL Ur Leukocyte Esterase 2+ H (NEGATIVE) Urine RBC None seen (0-5/HPF) Urine WBC 1-5/hpf (0-5/HPF) Ur Squamous Epith Cells 0-1 /hpf (0-5/HPF) Urine Bacteria Occasional (0-1) (None) Ur Culture Indicated? Specimen cultured SARS-CoV-2 (PCR) Negative (Negative) Blood Type Antibody Screen Crossmatch Imaging Data Chest x-ray: Radiologist Impression: [address] [address] XRay Report Signed Patient: Tania Martines MR#: [id number] : 1945 Acct:[id number] Age/Sex: 76 / F Date of Service: 01/29/22 Loc: ED Accession Number: [id number] ?? Procedure: XR chest 1V Ordering Provider: Ana Cochran D.O. PROCEDURE:? XR CHEST 1V ? INDICATIONS:? chest pain ? TECHNIQUE:? One view of the chest was acquired.? ? COMPARISON:? [facility], CR, XR CHEST 2V, 01/17/2022, 18:19. ? FINDINGS:? ? Surgical changes and devices:? Stable cervical spine and lumbar spine fixation hardware. ? Lungs and pleura:? Lungs are clear.? No pleural effusions or pneumothorax.? ? Mediastinum:? Mediastinal contours appear normal.? Heart size is normal.? ? Bones and chest wall:? No suspicious bony lesions.? Overlying soft tissues appe ar unremarkable.? ? IMPRESSION:? No acute cardiopulmonary disease process. ? ? Dictated by: Tayler Davis MD, PhD on 01/29/2022 at 17:01 ? ? Approved by: Tayler Davis MD, PhD on 01/29/2022 at 17:02 ? ECG Data Interpretation: Normal sinus rhythm rate [address] elevation or depression MDM Narrative Medical decision making narrative: Appropriate for admission. Will need colonoscopy and transfusion. Patient has significant drop in hemoglobin this afternoon. I did review with hospitalist and surgeon. They agree patient should be admitted. Patient does desire for admit. Critical Care Time Critical Care Time Attestation: Critical Care Time 35 minutes: Critical care time is separate from other billable procedures. This critical care time includes consultation with family and other consulting doctors, review of records, and interpretation of data from labs, EKGs, imaging, etc. Discharge Plan Departure Patient Disposition: Admitted as Observation Clinical Impression: Acute GI bleeding Admit Date/Time: 01/29/22 19:57 Admit Provider: Maddy Giron
[2022-01-29 20:03] LABS: Appearance Urine UA CLEAR; Bilirubin Urine UA NEGATIVE (NEGATIVE); Color Urine UA YELLOW; Glucose Urine UA NEGATIVE (Negative); Ketones Urine UA NEGATIVE (NEGATIVE); Leukocyte Esterase Urine UA 2+ (NEGATIVE); Nitrite Urine UA NEGATIVE (Negative); Occult Blood Urine UA NEGATIVE (Negative); Protein Urine UA NEGATIVE (Negative); Urobilinogen Urine UA 0.2 E.U./dL (0.2)
[2022-01-29] MEDS: PANTOPRAZOLE 40 MG VIAL IV (20:18)
[2022-01-29 20:22] LABS: Bacteria Urine Occasional (0-1); Culture Indicated Urine Specimen Cultured; RBC Urine None Seen (0-5/HPF); Squamous Epithelial Cell Urine 0-1 /HPF (0-5/HPF); WBC Urine 1-5/HPF (0-5/HPF)
--- NOTE | 2022-01-29 21:13 | PC.NURSE ---
Pt admitted upstairs. Blood transfusing at a rate of 150 mls/hr. See TAR for more information.
--- NOTE | 2022-01-29 21:52 | P.HP_ITS ---
History of Present Illness History of Present Illness Date Patient Seen: 01/29/22 Time Patient Seen: 21:52 Chief complaint: Dizzy, recent blood transfusion Narrative: Tania Martines is a 76 y.o. female with hypertension and a history of Delvalle's esphogus was recently admitted for symptomatic anemia at that time with a presenting hemoglobin of 3.8, received 2 units PRBC, underwent and EGD scope admitted on 01/17 and discharged on 01/20 was seen earlier today in followup w/Dr. Watson. After her appointment, she felt very tired, diaphoretic, dizzy and lightheaded. She denies hematochezia or hemoptysis. Denies nausea or vomiting, dysurea, diarrhea or constipation. She was walking around in a local grocery department when her symptoms occurred and store personnel contacted EMS where she was brought to the ED. Her hematocrit drawn in the outpatient lab today was 6.9 and when it was repeated in the ED was 6.6. Today, she was ordered for 2 units PRBC and arrived to the floor with the first unit running. Chest xray today is negative. Temp is 97.3?, blood pressure 146/52, heart rate 74, respiratory rate 18, oxygen saturation 97% on room air she weighs 61.5 kg with a BMI of 25.6. ED hemoglobin and hematocrit was 6.6 and 21.4 respectively, platelet count 476, sodium 133, BUN 33 creatinine 1.38 which is close to her baseline, EGFR is 46, glucose 115, AST 48, UA is negative for UTI and COVID-19 PCR is negative. Patient History Medical History Delvalle esophagus Depression HTN (hypertension) Family & Social History Family History (Updated 01/30/22 @ 00:53 by SHANA Palmer) Mother Alive and well Father Stomach cancer Daughter Heart transplant rejection Congenital heart defect Social History: household members none Prior Living Arrangements House Safety & Behavioral: Feels Safe in Current Yes Environment Been Physically Hurt or No Threatened By a Person Tobacco & Substance use: Smoking Status Never smoker alcohol intake current alcohol intake frequency holiday/special occasion Substance Use Type does not use Meds Home Medications and Allergies Home Medications Medication Instructions Recorded Confirmed Type atenolol 25 mg tablet 25 mg PO BID 01/17/22 01/29/22 History duloxetine 20 mg capsule,delayed 20 mg PO DAILY 01/17/22 01/29/22 History release escitalopram oxalate 5 mg tablet 5 mg PO TID 01/17/22 01/29/22 History hydrochlorothiazide 25 mg tablet 25 mg PO DAILY 01/17/22 01/29/22 History methocarbamol 750 mg tablet 750 mg PO BID PRN Pain (Scale 01/17/22 01/29/22 History Score 4-6) pantoprazole 40 mg tablet,delayed 40 mg PO BID #60 tabs 01/20/22 01/29/22 Rx release (Protonix) Allergies Allergy/AdvReac Type Severity Reaction Status Date / Time aripiprazole [From [facility]] Allergy Unknown Verified 01/29/22 14:01 Penicillins Allergy Unknown Verified 01/29/22 14:01 adhesive AdvReac Verified 01/29/22 14:01 Review of Systems Review of Systems ROS: Yes All systems reviewed with the patient and are negative except as otherwise documented Exam Vital Signs (past 8 hours): - 01/29/22 17:54 01/29/22 17:26 01/29/22 17:26 Temperature 98.7 F Pulse Rate 72 76 Respiratory Rate 20 Blood Pressure 137/62 137/62 Pulse Oximetry 98 98 Oxygen Delivery Method Room Air 01/29/22 17:30 01/29/22 18:00 01/29/22 18:24 Temperature Pulse Rate 73 72 78 Respiratory Rate 26 H 34 H 29 H Blood Pressure Pulse Oximetry 97 97 95 Oxygen Delivery Method 01/29/22 18:24 01/29/22 18:30 01/29/22 18:30 Temperature Pulse Rate 79 Respiratory Rate 23 Blood Pressure 151/66 H 148/68 H Pulse Oximetry 96 Oxygen Delivery Method 01/29/22 19:00 01/29/22 19:00 01/29/22 19:30 Temperature Pulse Rate 75 Respiratory Rate 34 H Blood Pressure 146/67 H 155/68 H Pulse Oximetry 97 Oxygen Delivery Method 01/29/22 19:30 01/29/22 20:00 01/29/22 20:01 Temperature Pulse Rate 72 82 Respiratory Rate 15 38 H Blood Pressure 138/60 Pulse Oximetry 97 94 Oxygen Delivery Method 01/29/22 20:01 01/29/22 20:23 01/29/22 20:43 Temperature 98.6 F 98.0 F Pulse Rate 80 80 78 Respiratory Rate 32 H 15 16 Blood Pressure 129/58 L 133/65 Pulse Oximetry 95 Oxygen Delivery Method 01/29/22 20:23 01/29/22 20:23 01/29/22 20:30 Temperature Pulse Rate 81 Respiratory Rate 31 H Blood Pressure 129/58 L 120/64 Pulse Oximetry 94 Oxygen Delivery Method 01/29/22 20:30 01/29/22 20:45 01/29/22 20:45 Temperature Pulse Rate 84 78 Respiratory Rate 30 H 26 H Blood Pressure 133/65 Pulse Oximetry 95 97 Oxygen Delivery Method Room Air Oxygen Delivery Method Room Air Narrative Exam Narrative: Gen: Alert, oriented, chronically ill appearing 76 y.o. female, NAD HEENT: normocephalic, atraumatic, conjunctiva clear, sclera non-icteric, oral mucosa pink and moist Neck: supple, full ROM, no JVD, trachea is midline Resp: Lungs CTA, non-labored breathing CV: RRR, no murmur or rubs Abd: soft, non-tender, normoactive BTs Skin: very pale, no lesions or rashes, dry and intact Neuro: Alert and oriented X 4 w/no focal deficits. Speech clear and coherent. Extremities: moves all 4 extremities, is ambulatory, negative Justin?s sign Psyche: normal mood and affect. Objective Labs Result Diagrams: 01/29/22 18:18 01/29/22 18:18 Labs: Laboratory Results - last 24 hr 01/29/22 01/29/22 01/29/22 18:18 18:18 18:18 WBC 6.5 RBC 2.78 L Hgb 6.6 L* Hct 21.4 L MCV 76.7 L MCH 23.8 L MCHC 31.1 RDW 21.4 H Plt Count 476 H Neut % (Auto) 70.7 Lymph % (Auto) 16.8 L [place] % (Auto) 9.4 Eos % (Auto) 2.2 Baso % (Auto) 0.9 Neut # (Auto) 4600 Lymph # (Auto) 1100 [place] # (Auto) 600 Eos # (Auto) 100 Baso # (Auto) 100 RBC Morphology See below Hypochromasia 2+ H Anisocytosis 2+ H Target Cells 2+ H Sodium 133 L Potassium 4.2 Chloride 97 L Carbon Dioxide 30 BUN 33 H Creatinine 1.38 H Estimated GFR 40 L BUN/Creatinine Ratio 23.9 H Glucose 115 H Calcium 9.2 Magnesium 2.1 Total Bilirubin 0.2 AST 48 H ALT 16 Alkaline Phosphatase 72 Total Creatine Kinase < 20 L CK-MB (CK-2) TNP CK-MB (CK-2) Rel Index TNP Troponin I < 0.012 Total Protein 6.3 Albumin 3.9 Globulin 2.4 Albumin/Globulin Ratio 1.6 Lipase 106 Urine Color Urine Appearance Urine pH Ur Specific [place] Urine Protein Urine Glucose (UA) Urine Ketones Urine Occult Blood Urine Nitrate Urine Bilirubin Urine Urobilinogen Ur Leukocyte Esterase Urine RBC Urine WBC Ur Squamous Epith Cells Urine Bacteria Ur Culture Indicated? SARS-CoV-2 (PCR) Blood Type O Positive Antibody Screen Negative Crossmatch See Detail 01/29/22 01/29/22 18:50 19:19 WBC RBC Hgb Hct MCV MCH MCHC RDW Plt Count Neut % (Auto) Lymph % (Auto) [place] % (Auto) Eos % (Auto) Baso % (Auto) Neut # (Auto) Lymph # (Auto) [place] # (Auto) Eos # (Auto) Baso # (Auto) RBC Morphology Hypochromasia Anisocytosis Target Cells Sodium Potassium Chloride Carbon Dioxide BUN Creatinine Estimated GFR BUN/Creatinine Ratio Glucose Calcium Magnesium Total Bilirubin AST ALT Alkaline Phosphatase Total Creatine Kinase CK-MB (CK-2) CK-MB (CK-2) Rel Index Troponin I Total Protein Albumin Globulin Albumin/Globulin Ratio Lipase Urine Color Yellow Urine Appearance Clear Urine pH 7.0 Ur Specific [place] 1.010 Urine Protein Negative Urine Glucose (UA) Negative Urine Ketones Negative Urine Occult Blood Negative Urine Nitrate Negative Urine Bilirubin Negative Urine Urobilinogen 0.2 Ur Leukocyte Esterase 2+ H Urine RBC None seen Urine WBC 1-5/hpf Ur Squamous Epith Cells 0-1 /hpf Urine Bacteria Occasional (0-1) Ur Culture Indicated? Specimen cultured SARS-CoV-2 (PCR) Negative Blood Type Antibody Screen Crossmatch Assessment & Plan Assessment & Plan narrative: Tania Martines is a 76 year old female placed into observation for symptomatic anemia and to receive blood transfusion and undergo lower GI scope sometime on 01/30. Symptomatic anemia, acute and present on admission * She was initiated on 1 unit PRBC in the emergency department and her repeat hemoglobin is 7.9 * Will hold on additional units until her 5:00 a.m. labs Suspected lower GI bleed, acute, present on admission * Dr. Watson has been notified of patient's admission and plans to scope for * He requested that the patient not be made NPO as he is not sure that he will be able to scope her tomorrow depending on OR time. * She normally takes oral Protonix but will be given IV Protonix 40 mg twice d aily Essential hypertension, chronic * Appears to be well controlled * Continue home dose of atenolol 25 mg p.o. b.i.d. * HCTZ is being held currently Depression, chronic * Patient attributes to grief reaction as her daughter just 1 year ago * Continue home dose of duloxetine 20 mg p.o. daily and Lexapro 5 mg p.o. t.i.d. VTE Prophylaxis: Wells risk score 0, pharmacological VTE prophylaxis contr aindicated in the setting of active bleeding X Bilateral SCDs Patient is placed into observation as her stay is not expected to exceed 2 midnights. FEN: IV fluids: saline lock, diet: heart healthy, labs: CBC, C/BMP, liver enzymes, Mag, PT/INR Consultants Dr. Watson, General Surgery care and involvement in the patient?s care is appreciated. Dispo: probable discharge to home Code status: DNI as discussed with the patient. [X] I have utilized all available immediate resources to obtain, update, or review of the patient's current medications COVID-19 COVID-19 status: Negative Result date/Date tested (Pos, Neg/Pending): 01/30/22 Scores Wells' Criteria for PE Clinical signs and symptoms of DVT: No PE is #1 Dx or equally likely: No Heart rate > 100: No Immobilization at least 3 days or surg in previous 4 weeks: No History of PE or DVT: No Hemoptysis: No Malignancy w/Treatment within 6 months or palliative: No Wells' PE Score total: 0 Quality VTE Deep Vein Thrombosis/Pulmonary Embolism Present on Admission: No MIPS - Admit I confirm the patient?s Advance Care Plan is present, Code status is documented, Surrogate decision maker is in patient?s record [If Yes, STOP here]: Yes MIPS - DC The patient has current or prior documentation of left ventricular ejection fraction (LVEF) less than 40%, or moderate or severely depressed left ventricular systolic function.: No
[2022-01-29] MEDS: ESCITALOPRAM 10 MG TABLET 5 MG PO (22:36)
[2022-01-29] MEDS: atenoloL 25 MG TABLET PO (22:36)
[2022-01-30] VITALS (7 sets, daily range): BP systolic 129–153; BP diastolic 53–61; PULSE 68–72; RESP 16–18; TEMP 36.3–36.6; O2SAT 94–98
[2022-01-30 00:50] LABS: Hematocrit 24.6 % (36-46); Hemoglobin 7.9 g/dL (12.0-16.0)
[2022-01-30] MEDS: ACETAMINOPHEN 325 MG TABLET 650 MG PO ×2 (02:22→16:23)
[2022-01-30 06:28] LABS: Add Manual Diff / Slide Review NO; Basophils Absolute Auto 100 /uL (0-100); Basophils Percent Auto 2.3 % (0-2); Eosinophils Absolute Auto 300 /uL (0-450); Eosinophils Percent Auto 4.5 % (2-4); Hematocrit 25.1 % (36-46); Hemoglobin 8.2 g/dL (12.0-16.0); Lymphocytes Absolute Auto 1400 /uL (1100-4500); Lymphocytes Percent Auto 22.1 % (25-40); Mean Corpuscular HGB Conc 32.6 % (30-36); Mean Corpuscular Hemoglobin 25.3 PG (26-34); Mean Corpuscular Volume 77.7 fL (80-100); Monocytes Absolute Auto 800 /uL (0-900); Monocytes Percent Auto 12.8 % (3-14); Neutrophils Absolute Auto 3700 /uL (1500-7000); Neutrophils Percent Auto 58.3 % (50-75); Platelet Count 428 X10^3/uL (150-400); Red Blood Cell Count 3.24 X10^6/uL (4.0-5.2); Red Cell Distribution Width 19.9 % (11.6-14.8); White Blood Cell Count 6.3 X10^3/uL (4.5-11.0)
[2022-01-30 06:41] LABS: BUN Creatinine Ratio 20.9 (6-22); Blood Urea Nitrogen 31 mg/dL (7-17); Calcium 8.6 mg/dL (8.4-10.2); Carbon Dioxide 32 mmol/L (22-32); Chloride 100 mmol/L (98-107); Estimated Glomerular Filt Rate 37 mL/min (>60); Glucose 93 mg/dL (80-110); HEMOLYSIS < 15 (0-50); Magnesium 1.9 mg/dL (1.6-2.3); Potassium 3.3 mmol/L (3.4-5.1); Sodium 137 mmol/L (137-145)
--- NOTE | 2022-01-30 07:08 | PC.NURSE ---
Admit/NOC Shift Note- Patient arrived to room via stretcher fromER at 2105. Patient alert and oriented and able to make needs known to staff. Physical assessment done, medications reviewed, physical assessment done, and skin check completed. Patient oriented to bed and bed controls, room, lights, phone, bathroom, and call [place]/tv remote. Patient agrees to call for assistance. safety measures in place. Call [place] and phone within. Will continue to monitor.
[2022-01-30] MEDS: ESCITALOPRAM 10 MG TABLET 5 MG PO ×3 (10:43→20:33)
[2022-01-30] MEDS: DULOXETINE 20 MG CAPSULE PO (10:43)
[2022-01-30] MEDS: PANTOPRAZOLE 40 MG VIAL IV ×2 (10:44→20:33)
[2022-01-30] MEDS: atenoloL 25 MG TABLET PO ×2 (10:44→20:33)
--- NOTE | 2022-01-30 11:14 | PC.NURSE ---
Addendum entered by Ciara Liz R.N. 01/30/22 17:59: Patient started her colonoscopy prep and was also given a bisacodyl 5mg orally. Diet changed to clear liquids. Given tylenol for complaints of headache and helpful to her. Attempted to start two iv's on patient as she states that the forearm one was bothering her. But she is doing well now and states that iv saline infusing through line is comfortable for her. She will go for her colonsocopy tomorrow. Original Note: Assess- Patient is alert and oriented x4, she denies pain or discomfort. Up independently to the bathroom. Patient had a bowel movment brown and normal in color. She has been given iv protonix and tolerated her medications. Patient is going to be npo after 0000 for colonoscopy tomorrow. She is resting comfortably now.
[2022-01-30 12:10] LABS: Hematocrit 25.6 % (36-46); Hemoglobin 8.3 g/dL (12.0-16.0)
--- NOTE | 2022-01-30 15:11 | PM.PN.1 ---
Subjective Subjective Date Patient Seen: 01/30/22 Interval history: Patient feels much improved after transfusion this morning. Denies chest pain, palpitations, or shortness of breath. She does feel a bit weak and fatigued still. Plan for bowel prep today and colonoscopy tomorrow per General surgery. Exam Vital Signs (past 8 hours): - 01/30/22 08:18 01/30/22 11:09 Temperature 97.6 F Pulse Rate 70 Respiratory Rate 16 Blood Pressure 134/53 L Pulse Oximetry 96 Oxygen Delivery Method Room Air Oxygen Delivery Method Room Air Oxygen Flow Rate 0 Narrative Exam Narrative: Gen: Alert, oriented, chronically ill appearing 76 y.o. female, NAD HEENT: normocephalic, atraumatic, conjunctiva clear, sclera non-icteric, oral mucosa pink and moist Neck: supple, full ROM, no JVD, trachea is midline Resp: Lungs CTA, non-labored breathing CV: RRR, no murmur or rubs Abd: soft, non-tender, normoactive BTs Skin: very pale, no lesions or rashes, dry and intact Neuro: Alert and oriented X 4 w/no focal deficits. Speech clear and coherent. Extremities: moves all 4 extremities, is ambulatory, negative Justin?s sign Psyche: normal mood and affect. Objective Labs Result Diagrams: 01/30/22 12:00 01/30/22 06:15 Labs: Laboratory Results - last 24 hr 01/29/22 01/29/22 01/29/22 18:18 18:18 18:18 WBC 6.5 RBC 2.78 L Hgb 6.6 L* Hct 21.4 L MCV 76.7 L MCH 23.8 L MCHC 31.1 RDW 21.4 H Plt Count 476 H Neut % (Auto) 70.7 Lymph % (Auto) 16.8 L [place] % (Auto) 9.4 Eos % (Auto) 2.2 Baso % (Auto) 0.9 Neut # (Auto) 4600 Lymph # (Auto) 1100 [place] # (Auto) 600 Eos # (Auto) 100 Baso # (Auto) 100 RBC Morphology See below Hypochromasia 2+ H Anisocytosis 2+ H Target Cells 2+ H Sodium 133 L Potassium 4.2 Chloride 97 L Carbon Dioxide 30 BUN 33 H Creatinine 1.38 H Estimated GFR 40 L BUN/Creatinine Ratio 23.9 H Glucose 115 H Calcium 9.2 Magnesium 2.1 Total Bilirubin 0.2 AST 48 H ALT 16 Alkaline Phosphatase 72 Total Creatine Kinase < 20 L CK-MB (CK-2) TNP CK-MB (CK-2) Rel Index TNP Troponin I < 0.012 Total Protein 6.3 Albumin 3.9 Globulin 2.4 Albumin/Globulin Ratio 1.6 Lipase 106 Urine Color Urine Appearance Urine pH Ur Specific [place] Urine Protein Urine Glucose (UA) Urine Ketones Urine Occult Blood Urine Nitrate Urine Bilirubin Urine Urobilinogen Ur Leukocyte Esterase Urine RBC Urine WBC Ur Squamous Epith Cells Urine Bacteria Ur Culture Indicated? SARS-CoV-2 (PCR) Blood Type O Positive Antibody Screen Negative Crossmatch See Detail 01/29/22 01/29/22 01/30/22 18:50 19:19 00:31 WBC RBC Hgb 7.9 L Hct 24.6 L MCV MCH MCHC RDW Plt Count Neut % (Auto) Lymph % (Auto) [place] % (Auto) Eos % (Auto) Baso % (Auto) Neut # (Auto) Lymph # (Auto) [place] # (Auto) Eos # (Auto) Baso # (Auto) RBC Morphology Hypochromasia Anisocytosis Target Cells Sodium Potassium Chloride Carbon Dioxide BUN Creatinine Estimated GFR BUN/Creatinine Ratio Glucose Calcium Magnesium Total Bilirubin AST ALT Alkaline Phosphatase Total Creatine Kinase CK-MB (CK-2) CK-MB (CK-2) Rel Index Troponin I Total Protein Albumin Globulin Albumin/Globulin Ratio Lipase Urine Color Yellow Urine Appearance Clear Urine pH 7.0 Ur Specific [place] 1.010 Urine Protein Negative Urine Glucose (UA) Negative Urine Ketones Negative Urine Occult Blood Negative Urine Nitrate Negative Urine Bilirubin Negative Urine Urobilinogen 0.2 Ur Leukocyte Esterase 2+ H Urine RBC None seen Urine WBC 1-5/hpf Ur Squamous Epith Cells 0-1 /hpf Urine Bacteria Occasional (0-1) Ur Culture Indicated? Specimen cultured SARS-CoV-2 (PCR) Negative Blood Type Antibody Screen Crossmatch 01/30/22 01/30/22 01/30/22 06:15 06:15 12:00 WBC 6.3 RBC 3.24 L Hgb 8.2 L 8.3 L Hct 25.1 L 25.6 L MCV 77.7 L MCH 25.3 L MCHC 32.6 RDW 19.9 H Plt Count 428 H Neut % (Auto) 58.3 Lymph % (Auto) 22.1 L [place] % (Auto) 12.8 Eos % (Auto) 4.5 H Baso % (Auto) 2.3 H Neut # (Auto) 3700 Lymph # (Auto) 1400 [place] # (Auto) 800 Eos # (Auto) 300 Baso # (Auto) 100 RBC Morphology Hypochromasia Anisocytosis Target Cells Sodium 137 Potassium 3.3 L Chloride 100 Carbon Dioxide 32 BUN 31 H Creatinine 1.48 H Estimated GFR 37 L BUN/Creatinine Ratio 20.9 Glucose 93 Calcium 8.6 Magnesium 1.9 Total Bilirubin AST ALT Alkaline Phosphatase Total Creatine Kinase CK-MB (CK-2) CK-MB (CK-2) Rel Index Troponin I Total Protein Albumin Globulin Albumin/Globulin Ratio Lipase Urine Color Urine Appearance Urine pH Ur Specific [place] Urine Protein Urine Glucose (UA) Urine Ketones Urine Occult Blood Urine Nitrate Urine Bilirubin Urine Urobilinogen Ur Leukocyte Esterase Urine RBC Urine WBC Ur Squamous Epith Cells Urine Bacteria Ur Culture Indicated? SARS-CoV-2 (PCR) Blood Type Antibody Screen Crossmatch [facility] Medical History Delvalle esophagus Depression HTN (hypertension) Family History (Updated 01/30/22 @ 00:54 by SHANA Palmer) Mother Alive and well Father Stomach cancer Daughter Heart transplant rejection Congenital heart defect Social History household members: none Smoking Status: Never smoker alcohol intake: current Assessment & Plan Assessment & Plan narrative: Tania Martines is a 76 year old female placed into observation for symptomatic anemia and to receive blood transfusion and undergo lower GI scope sometime on 01/30. Acute on chronic blood loss anemia, acute and present on admission, presumed GI bleeding. - prior EGD unremarkable, plan for prep today with colonoscopy tomorrow with general surgery - given 1U PRBC with improvement from 6.6 to 7.9 and improved to 8.3 later today. Essential hypertension, chronic - continue home medications Depression, chronic - continue home medications Dispo: observation, probable discharge home tomorrow depending on endoscopy findings. Consultants Dr. Watson, General Surgery care and involvement in the patient?s care is appreciated. Code status: DNI as discussed with the patient. Surrogate, daughter. [X] I have utilized all available immediate resources to obtain, update, or review of the patient's current medications COVID-19 COVID-19 status: Negative Result date/Date tested (Pos, Neg/Pending): 01/30/22 Time Spent With Patient Critical Care time: I spent a total of [] minutes of critical care time on this patient's care today; this time is exclusive of procedural time. Quality VTE Deep Vein Thrombosis/Pulmonary Embolism Present on Admission: No
[2022-01-30] MEDS: POTASSIUM CHLORIDE 20 MEQ TAB 40 MEQ PO (15:58)
[2022-01-30] MEDS: PEG3350/SOD SULF,BICARB,CL/KCL 4,000 ML SOLUTION 4000 ML PO (16:00)
[2022-01-30] MEDS: BISACODYL 5 MG TABLET PO (16:00)
[2022-01-30] MEDS: SODIUM CHLORIDE 0.9% 1,000 ML 200 ML IV ×2 (16:04→21:25)
--- NOTE | 2022-01-30 16:24 | CM.DANOTE ---
DCP/continued: Reviewed chart. Patient is a 76yr old female admitted [facility] with GI bleed. No PCP identified. Primary payor 1)[employer]. Met with patient explained CM/SW role. Patient reports that she is completely I in all ADL's. Patient has colonoscopy scheduled for tomorrow. Patient reports that she does have a cane but rarely uses. Patient reports that her DIL/Valeria will pick her up once she is medically stable. Patient requesting numbers for [facility] clinics for PCP. SHOE TRIMMER asked charge accounts audit clerk/Pilar to provide and she agreed. P: Home when stable. Do not anticipate any d/c planning needs but will continue to follow. MITCHEL Stanley Discharge Planning/Care Management Advanced directive, confirm from CLINIC Start: 01/29/22 21:35 Freq: Q24H Status: Active Protocol: Document 01/29/22 21:35 AGW (Rec: 01/30/22 02:55 AGW [id number]) Advance Directive, confirm on record Time 20:15 Person contacted requested from clinic Copy received No CM Discharge Assessment Start: 01/30/22 16:20 Freq: Status: Active Protocol: Document 01/30/22 16:21 KJS (Rec: 01/30/22 16:24 KJS [id number]) Discharge Planning Assessment Assigned Quality Assurance Intern MITCHEL Stanley Contact Information Valeria Martines (DIL) # [phone] Advance Directives? Yes Advance Directives on File No History Provided By Patient,Medical Record Prior Living Arrangements House Household Members none Type of transporation used prior to Drives own vehicle admit Independent with ADL's Yes Is patient alert and oriented? Yes Caregiver for Another No DME Already Rented / Owned Cane Barriers to Discharge No Discharge Plan Home Transportation Arrangement Family Referrals Initiated None needed Whiteboard Updated in Patient Room with Yes name and ext. # of Quality Assurance Intern Review Status In Process Next Review Type Continued Stay Review
[2022-01-30 18:17] LABS: Hematocrit 25.7 % (36-46); Hemoglobin 8.2 g/dL (12.0-16.0)
[2022-01-31] VITALS (12 sets, daily range): BP systolic 97–169; BP diastolic 40–74; PULSE 76–85; RESP 16–19; TEMP 36.1–37; O2SAT 94–99; BMI 25.6
[2022-01-31] MEDS: ACETAMINOPHEN 325 MG TABLET 650 MG PO ×2 (01:59→14:29)
[2022-01-31 06:24] LABS: Add Manual Diff / Slide Review NO; Basophils Absolute Auto 100 /uL (0-100); Eosinophils Absolute Auto 400 /uL (0-450); Eosinophils Percent Auto 6.3 % (2-4); Hematocrit 24.1 % (36-46); Hemoglobin 7.6 g/dL (12.0-16.0); Lymphocytes Absolute Auto 900 /uL (1100-4500); Lymphocytes Percent Auto 15.7 % (25-40); Mean Corpuscular HGB Conc 31.4 % (30-36); Mean Corpuscular Volume 79.6 fL (80-100); Monocytes Absolute Auto 700 /uL (0-900); Monocytes Percent Auto 12.6 % (3-14); Neutrophils Absolute Auto 3600 /uL (1500-7000); Neutrophils Percent Auto 63.4 % (50-75); Platelet Count 400 X10^3/uL (150-400); Red Blood Cell Count 3.03 X10^6/uL (4.0-5.2); Red Cell Distribution Width 20.1 % (11.6-14.8); White Blood Cell Count 5.7 X10^3/uL (4.5-11.0)
[2022-01-31 06:29] LABS: HEMOLYSIS < 15 (0-50); Potassium 3.7 mmol/L (3.4-5.1)
[2022-01-31 06:30] LABS: BUN Creatinine Ratio 15.9 (6-22); Blood Urea Nitrogen 18 mg/dL (7-17); Calcium 8.1 mg/dL (8.4-10.2); Carbon Dioxide 28 mmol/L (22-32); Chloride 108 mmol/L (98-107); Estimated Glomerular Filt Rate 51 mL/min (>60); Glucose 93 mg/dL (80-110); Magnesium 1.6 mg/dL (1.6-2.3); Sodium 139 mmol/L (137-145)
[2022-01-31 07:04] LABS: Hypochromasia 1+; Microcytosis 1+
[2022-01-31 07:05] LABS: Anisocytosis 2+; Polychromasia 1+
[2022-01-31] MEDS: PANTOPRAZOLE 40 MG VIAL IV ×2 (13:55→20:05)
[2022-01-31] MEDS: LACTATED RINGERS 1,000 ML 42 ML IV (16:08)
--- NOTE | 2022-01-31 16:08 | P.CONS_ITS ---
History of Present Illness Consult details Date Patient Seen: 01/31/22 Time Patient Seen: 16:08 Chief complaint: Dizzy, recent blood transfusion Narrative: 76-year-old woman admitted hospital for anemia. At admission she is lightheaded, dizzy admission hematocrit 22 normotensive. She received 2 units of packed red blood cells and now her most recent hematocrit is 24. No blood per rectum abdominal pain nausea vomiting or hematochezia. She underwent a esophagoduodenoscopy 2 weeks ago which demonstrated mild gastritis and a small hiatal hernia but was otherwise normal there was no evidence of bleeding. Last colonoscopy was 6 years ago notable for a few polyps per her report. No personal or family history of intestinal malignancy. Meds Home Medications and Allergies Home Medications Medication Instructions Recorded Confirmed Type atenolol 25 mg tablet 25 mg PO BID 01/17/22 01/29/22 History duloxetine 20 mg capsule,delayed 20 mg PO DAILY 01/17/22 01/29/22 History release escitalopram oxalate 5 mg tablet 5 mg PO TID 01/17/22 01/29/22 History hydrochlorothiazide 25 mg tablet 25 mg PO DAILY 01/17/22 01/29/22 History methocarbamol 750 mg tablet 750 mg PO BID PRN Pain (Scale 01/17/22 01/29/22 History Score 4-6) pantoprazole 40 mg tablet,delayed 40 mg PO BID #60 tabs 01/20/22 01/29/22 Rx release (Protonix) Allergies Allergy/AdvReac Type Severity Reaction Status Date / Time Penicillins Allergy Intermediate Redness of Verified 01/30/22 15:35 Skin aripiprazole [From Abiliy] Allergy Unknown Verified 01/29/22 14:01 adhesive AdvReac Verified 01/29/22 14:01 Exam Vital Signs (past 8 hours): - 01/31/22 11:10 01/31/22 11:00 01/31/22 12:00 Temperature 98.6 F 97.2 F L Pulse Rate 83 84 Respiratory Rate 18 18 Blood Pressure 154/61 H 148/55 H Pulse Oximetry 94 97 94 Oxygen Delivery Method Room Air Oxygen Flow Rate 0 0 0 01/31/22 16:06 Temperature 97.9 F Pulse Rate 80 Respiratory Rate 16 Blood Pressure 169/71 H Pulse Oximetry 97 Oxygen Delivery Method Room Air Oxygen Flow Rate Oxygen Delivery Method Room Air Oxygen Flow Rate 0 Narrative Exam Narrative: General adult woman alert oriented no acute distress Chest nonlabored respirations Abdomen soft nontender nondistended. Objective Labs Result Diagrams: 01/31/22 05:36 01/31/22 05:36 Labs: Laboratory Results - last 24 hr 01/30/22 01/31/22 01/31/22 18:05 05:36 05:36 WBC 5.7 RBC 3.03 L Hgb 8.2 L 7.6 L Hct 25.7 L 24.1 L MCV 79.6 L MCH 25.0 L MCHC 31.4 RDW 20.1 H Plt Count 400 Neut % (Auto) 63.4 Lymph % (Auto) 15.7 L [place] % (Auto) 12.6 Eos % (Auto) 6.3 H Baso % (Auto) 2.0 Neut # (Auto) 3600 Lymph # (Auto) 900 L [place] # (Auto) 700 Eos # (Auto) 400 Baso # (Auto) 100 RBC Morphology See below Polychromasia 1+ H Hypochromasia 1+ H Anisocytosis 2+ H Microcytosis 1+ H Sodium 139 Potassium 3.7 Chloride 108 H Carbon Dioxide 28 BUN 18 H Creatinine 1.13 H Estimated GFR 51 L BUN/Creatinine Ratio 15.9 Glucose 93 Calcium 8.1 L Magnesium 1.6 PFSH Medical History Delvalle esophagus Depression HTN (hypertension) Family History Mother Alive and well Father Stomach cancer Daughter Heart transplant rejection Congenital heart defect Social History household members: none Tobacco & Substance Use Smoking Status: Never smoker alcohol intake: current Assessment & Plan Assessment and plan (1) Symptomatic anemia: Status: Acute Assessment & Plan narrative: 76-year-old woman with symptomatic anemia recently normal upper endoscopy here for diagnostic colonoscopy. Overview of the procedure was discussed with the patient. Procedural risks including bleeding, infection, missed diagnosis, intestinal perforation were discussed. Her questions have been answered and she is in agreement with this plan. Time Spent With Patient Critical Care time: I spent a total of [] minutes of critical care time on this patient's care today; this time is exclusive of procedural time.
--- NOTE | 2022-01-31 16:39 | SUR.OPER ---
Removed patients 1 pair of metal earrings and 1 metal necklace placed in specimen container with patient label and patients glasses placed in black glass case. Kept with patient in ENDO procedure room then with patient to PACU.
--- NOTE | 2022-01-31 16:47 | PM.OP.COLON ---
Operative Date/Time/Diagnoses Date of procedure: 01/31/22 Time of procedure: 16:47 Pre-op diagnosis: Anemia Post-op diagnosis: same Procedure & Clinicians Study performed: Colonoscopy Same procedure as scheduled: Yes Indications: Anemia Surgeon: Bandar Don Procedure Notes Procedure in detail: The history and physical was performed/updated and the patient is ASA class is 3. The procedure was discussed in detail with the patient. Potential risks complications including infection, bleeding, missed diagnosis, perforation, need for surgery, and were explained. Their questions were answered and informed consent was obtained. Patient was brought to the procedure room and placed standard monitoring equipment. The patient's vital signs were monitored continuously throughout the entire procedure. Prior to starting time-out was performed. The patient was placed in the left lateral recumbent position. Procedural sedation was administered by Anesthesia. Examination began with a thorough inspection of the perianal area there was no evidence of fissures, fistulae, external hemorrhoids or cutaneous malignancy. The colonoscopy scope was then placed into the anal canal and was advanced to the cecum, which was identified by the ileocecal valve, the appendiceal orifice and the confluence of the taenia. The scope was then slowly withdrawn examining colon thoroughly in all directions, irrigating it of any residual stool. FINDINGS 1. No masses or polyps 2. No evidence of active or prior bleeding 3. Extensive diverticulosis 4. Internal hemorrhoids The patient tolerated the procedure well. They will be discharged once criteria are met. The prep was of fair quality. The withdrawl time was 6 minutes. Specimen(s): none sent Complications: none Impression: Diverticulosis Post-procedure Recommendations: High fiber diet Plan for aftercare: Return to the [place]. Okay for diet Disposition: Acute Care
--- NOTE | 2022-01-31 17:09 | SUR.PHASEI ---
Pt denies any distress, report given to receiving RN.
--- NOTE | 2022-01-31 18:21 | SUR.OPER ---
Patients personal belongings of 1 pair of earrings and 1 necklace with her glasses, brought to acute care unit and given to her Nurse Tip.
--- NOTE | 2022-01-31 18:56 | PM.PN.1 ---
Subjective Subjective Date Patient Seen: 01/31/22 Interval history: Denies chest pain, palpitations, or shortness of breath. She does feel a bit weak and fatigued still. Plan for c-scope today. Exam Vital Signs (past 8 hours): - 01/31/22 11:10 01/31/22 11:00 01/31/22 12:00 Temperature 98.6 F 97.2 F L Pulse Rate 83 84 Respiratory Rate 18 18 Blood Pressure 154/61 H 148/55 H Pulse Oximetry 94 97 94 Oxygen Delivery Method Room Air Oxygen Flow Rate 0 0 0 01/31/22 16:06 01/31/22 16:50 01/31/22 16:55 Temperature 97.9 F 97 F L Pulse Rate 80 84 83 Respiratory Rate 16 19 17 Blood Pressure 169/71 H 97/40 L 109/45 L Pulse Oximetry 97 97 97 Oxygen Delivery Method Room Air Room Air Room Air Oxygen Flow Rate 01/31/22 17:05 Temperature Pulse Rate 80 Respiratory Rate 16 Blood Pressure 130/62 Pulse Oximetry 97 Oxygen Delivery Method Room Air Oxygen Flow Rate Oxygen Delivery Method Room Air Oxygen Flow Rate 0 Narrative Exam Narrative: Gen: Alert, oriented, chronically ill appearing 76 y.o. female, NAD HEENT: normocephalic, atraumatic, conjunctiva clear, sclera non-icteric, oral mucosa pink and moist Neck: supple, full ROM, no JVD, trachea is midline Resp: Lungs CTA, non-labored breathing CV: RRR, no murmur or rubs Abd: soft, non-tender, normoactive BTs Skin: very pale, no lesions or rashes, dry and intact Neuro: Alert and oriented X 4 w/no focal deficits. Speech clear and coherent. Extremities: moves all 4 extremities, is ambulatory, negative Justin?s sign Psyche: normal mood and affect. Objective Labs Result Diagrams: 01/31/22 05:36 01/31/22 05:36 Labs: Laboratory Results - last 24 hr 01/31/22 01/31/22 05:36 05:36 WBC 5.7 RBC 3.03 L Hgb 7.6 L Hct 24.1 L MCV 79.6 L MCH 25.0 L MCHC 31.4 RDW 20.1 H Plt Count 400 Neut % (Auto) 63.4 Lymph % (Auto) 15.7 L [place] % (Auto) 12.6 Eos % (Auto) 6.3 H Baso % (Auto) 2.0 Neut # (Auto) 3600 Lymph # (Auto) 900 L [place] # (Auto) 700 Eos # (Auto) 400 Baso # (Auto) 100 RBC Morphology See below Polychromasia 1+ H Hypochromasia 1+ H Anisocytosis 2+ H Microcytosis 1+ H Sodium 139 Potassium 3.7 Chloride 108 H Carbon Dioxide 28 BUN 18 H Creatinine 1.13 H Estimated GFR 51 L BUN/Creatinine Ratio 15.9 Glucose 93 Calcium 8.1 L Magnesium 1.6 PFSH Medical History Delvalle esophagus Depression HTN (hypertension) Family History Mother Alive and well Father Stomach cancer Daughter Heart transplant rejection Congenital heart defect Social History household members: none Smoking Status: Never smoker alcohol intake: current Assessment & Plan Assessment & Plan narrative: Tania Martines is a 76 year old female placed into observation for symptomatic anemia and to receive blood transfusion and undergo lower GI scope sometime on 01/30. Acute on chronic blood loss anemia, acute and present on admission, presumed GI bleeding. - prior EGD unremarkable, C-scope today. - given 1U PRBC with improvement from 6.6 to 7.9 and improved to 8.3 yesterday, down again to 7.6. If c-scope negative may need to monitor for further bleeding. Essential hypertension, chronic - continue home medications Depression, chronic - continue home medications Dispo: probable discharge home tomorrow depending on h/h trend Consultants General surgery Code status: DNI as discussed with the patient. Surrogate, daughter. [X] I have utilized all available immediate resources to obtain, update, or review of the patient's current medications COVID-19 COVID-19 status: Negative Result date/Date tested (Pos, Neg/Pending): 01/30/22 Time Spent With Patient Critical Care time: I spent a total of [] minutes of critical care time on this patient's care today; this time is exclusive of procedural time. Quality VTE Deep Vein Thrombosis/Pulmonary Embolism Present on Admission: No
[2022-01-31] MEDS: ESCITALOPRAM 10 MG TABLET 5 MG PO (20:05)
[2022-01-31] MEDS: atenoloL 25 MG TABLET PO (20:05)
[2022-02-01 05:00] VITALS: O2SAT 98
[2022-02-01 06:30] LABS: Add Manual Diff / Slide Review NO; Basophils Absolute Auto 100 /uL (0-100); Basophils Percent Auto 2.1 % (0-2); Eosinophils Absolute Auto 400 /uL (0-450); Eosinophils Percent Auto 7.6 % (2-4); Hematocrit 23.6 % (36-46); Hemoglobin 7.5 g/dL (12.0-16.0); Lymphocytes Absolute Auto 1200 /uL (1100-4500); Lymphocytes Percent Auto 24.6 % (25-40); Mean Corpuscular HGB Conc 31.7 % (30-36); Mean Corpuscular Volume 78.8 fL (80-100); Monocytes Absolute Auto 700 /uL (0-900); Neutrophils Absolute Auto 2500 /uL (1500-7000); Neutrophils Percent Auto 50.7 % (50-75); Platelet Count 403 X10^3/uL (150-400); Red Blood Cell Count 2.99 X10^6/uL (4.0-5.2); Red Cell Distribution Width 19.8 % (11.6-14.8)
[2022-02-01 07:02] LABS: BUN Creatinine Ratio 14.3 (6-22); Blood Urea Nitrogen 15 mg/dL (7-17); Calcium 8.7 mg/dL (8.4-10.2); Carbon Dioxide 29 mmol/L (22-32); Chloride 107 mmol/L (98-107); Estimated Glomerular Filt Rate 56 mL/min (>60); Glucose 93 mg/dL (80-110); HEMOLYSIS < 15 (0-50); Potassium 3.7 mmol/L (3.4-5.1); Sodium 139 mmol/L (137-145)
[2022-02-01] MEDS: PANTOPRAZOLE 40 MG VIAL IV (09:57)
[2022-02-01] MEDS: atenoloL 25 MG TABLET PO (09:57)
[2022-02-01] MEDS: DULOXETINE 20 MG CAPSULE PO (09:57)
[2022-02-01] MEDS: ESCITALOPRAM 10 MG TABLET 5 MG PO ×2 (09:57→14:38)
[2022-02-01 11:00] VITALS: O2SAT 92
[2022-02-01 12:00] VITALS: BP 158/64; PULSE 74; RESP 18; TEMP 36; O2SAT 96
[2022-02-01 17:00] VITALS: O2SAT 94
--- NOTE | 2022-02-01 22:21 | P.DS_ITS ---
History of Present Illness History of Present Illness Date Patient Seen: 01/29/22 Time Patient Seen: 21:52 Chief complaint: Dizzy, recent blood transfusion Narrative: Per admitting provider: Tania Martines is a 76 y.o. female with hypertension and a history of Delvalle's esphogus was recently admitted for symptomatic anemia at that time with a presenting hemoglobin of 3.8, received 2 units PRBC, underwent and EGD scope admitted on 01/17 and discharged on 01/20 was seen earlier today in followup w/Dr. Watson. After her appointment, she felt very tired, diaphoretic, dizzy and lightheaded. She denies hematochezia or hemoptysis. Denies nausea or vomiting, dysurea, diarrhea or constipation. She was walking around in a local grocery department when her symptoms occurred and store personnel contacted EMS where she was brought to the ED. Her hematocrit drawn in the outpatient lab today was 6.9 and when it was repeated in the ED was 6.6. Today, she was ordered for 2 units PRBC and arrived to the floor with the first unit running. Chest xray today is negative. Temp is 97.3?, blood pressure 146/52, heart rate 74, respiratory rate 18, oxygen saturation 97% on room air she weighs 61.5 kg with a BMI of 25.6. ED hemoglobin and hematocrit was 6.6 and 21.4 respectively, platelet count 476, sodium 133, BUN 33 creatinine 1.38 which is close to her baseline, EGFR is 46, glucose 115, AST 48, UA is negative for UTI and COVID-19 PCR is negative. Discharge Providers Provider Date of admission: 01/29/22 19:57 Discharge Date: 02/01/22 Consults: 01/29/22 20:21 Consult to General Surgery Routine Comment: Consulting Provider: Khang Watson Reason for consultation: GIB, symptomatic anemia Has provider been notified: Yes Discharge provider: Juanjose Harrell MD Summary Hospital Course Discharge Diagnosis: 1. Acute on chronic anemia, suspect GI bleeding 2. Hypertension 3. Depression Hospital Course: Ms. Martines was admitted with symptomatic anemia with most notably fatigue. She had not noted overt GI bleeding, but had noted dizziness. She had previous admission recently with profound anemia with hemoglobin in 3s, with EGD done at that time with mild gastritis, no evidence of bleeding. She had admission with hemoglobin in the 6s, she was transfused and her hemoglobin improved and remained stable on discharge. Her workup had previously shown significant iron deficiency anemia and so was started on iron supplementation. She will be referred to gastroenterology for concern for possible obscure bleeding and question of need for capsule endoscopy. She will be referred to oncology for persistent anemia as well. She is recommended to follow up with her PCP within one week to recheck a CBC. Exam Vital Signs (past 8 hours): - 02/01/22 17:00 Pulse Oximetry 94 Oxygen Delivery Method Room Air Oxygen Flow Rate 0 Oxygen Delivery Method Room Air Oxygen Flow Rate 0 Narrative Exam Narrative: GEN :no acute distress CV: regular rate and rhythm PULM :clear bilaterally ABD: soft, nontender Objective Labs Result Diagrams: 02/01/22 06:05 02/01/22 06:05 Labs: Laboratory Results - last 24 hr 02/01/22 02/01/22 06:05 06:05 WBC 5.0 RBC 2.99 L Hgb 7.5 L Hct 23.6 L MCV 78.8 L MCH 25.0 L MCHC 31.7 RDW 19.8 H Plt Count 403 H Neut % (Auto) 50.7 Lymph % (Auto) 24.6 L [place] % (Auto) 15.0 H Eos % (Auto) 7.6 H Baso % (Auto) 2.1 H Neut # (Auto) 2500 Lymph # (Auto) 1200 [place] # (Auto) 700 Eos # (Auto) 400 Baso # (Auto) 100 Sodium 139 Potassium 3.7 Chloride 107 Carbon Dioxide 29 BUN 15 Creatinine 1.05 H Estimated GFR 56 L BUN/Creatinine Ratio 14.3 Glucose 93 Calcium 8.7 PENDING SALE TO [facility] Medical History Delvalle esophagus Depression HTN (hypertension) Family History Mother Alive and well Father Stomach cancer Daughter Heart transplant rejection Congenital heart defect Social History household members: none Smoking Status: Never smoker alcohol intake: current Discharge Plan Discharge Plan Patient Disposition: Home Provider Discharge Comment: Ms. Martines came in with symptomatic anemia. She was transfused and felt improved. She had previously had an EGD with mild gastritis. Colonoscopy showed only diverticulosis. She had no overt site of bleeding. She was started on iron pills for iron deficiency. She should follow with her PCP within one week to check her hemoglobin. She is referred to gastroenterology and hematology. Discharge orders & Medications Prescriptions: New ferrous sulfate 325 mg (65 mg iron) tablet,delayed release (DR/EC) 325 mg PO TID Qty: 90 0RF Continued atenolol 25 mg tablet 25 mg PO BID Label Comments: TAKE 1 TABLET BY MOUTH TWICE DAILY methocarbamol 750 mg tablet 750 mg PO BID PRN (Reason: Pain (Scale Score 4-6)) hydrochlorothiazide 25 mg tablet 25 mg PO DAILY Label Comments: TAKE 1 TABLET BY MOUTH ONCE DAILY escitalopram oxalate 5 mg tablet 5 mg PO TID Label Comments: TAKE 3 TABLETS BY MOUTH ONCE DAILY duloxetine 20 mg capsule,delayed release(DR/EC) 20 mg PO DAILY Label Comments: TAKE 2 CAPSULES BY MOUTH ONCE DAILY pantoprazole [Protonix] 40 mg tablet,delayed release (DR/EC) 40 mg PO BID Qty: 60 0RF Follow up/Referrals: Ubaldo Wilkerson MD [Physician] - (severe anemia, suspect obscure GI bleed as has negative EGD/colo, ?capsule) Daniela Shane MD [Physician] - (severe anemia, negative EGD/colo, significant iron deficiency) Diet/Activity/Treatments Diet: Regular Discharge Data Attending Provider: Maddy Giron VTE Deep Vein Thrombosis/Pulmonary Embolism Present on Admission: No
== END 2022-02-01 18:02 | disposition home or self-care (01) ==
LOC: ED 19:49 → AC 19:58
PROVIDERS: Emergency Medicine; Internal Medicine; Surgery; Admitting Provider Nurse Practitioner Family; Emergency Provider Emergency Medicine; Visit Provider Nurse Practitioner Family
PROC: 0DJD8ZZ Inspection of Lower Intestinal Tract, Via Natural or Artificial Opening Endoscopic (ICD-10-PCS; CPT 45378; principal; 2022-01-31 16:45)
DX: D64.9 Anemia, unspecified (principal); R42 Dizziness and giddiness; I10 Essential (primary) hypertension; F32.A Depression, unspecified; Z20.822 Contact with and (suspected) exposure to COVID-19; K64.8 Other hemorrhoids; K57.30 Diverticulosis of large intestine without perforation or abscess without bleeding
CPT/HCPCS: 45378; 36415; 36430; 71045; 80048; 80053; 81001; 82550; 83690; 83735; 84484; 85014; 85018; 85025; 86850; 86900; 86901; 87086; 87635; 93005; 93010; 96361; 96374; 96376; 99214; 99225; 99284; 99291; C9803; G0378; P9016; C9113; J2704

== ENCOUNTER 2022-12-08 02:53 | Emergency (ER) | payer OTHER, SELFPAY ==
[2022-01-29 20:05] VITALS: BMI 25.6
[2022-12-08] VITALS (9 sets, daily range): BP systolic 115–184; BP diastolic 58–113; PULSE 75–80; RESP 16–18; TEMP 36.9; O2SAT 92–98; BMI 22.6
--- NOTE | 2022-12-08 02:55 | DI.RAD.S_ITS ---
PROCEDURE: XR ANKLE LT MIN 3V INDICATIONS: fall with ankle pain TECHNIQUE: 3 views of the ankle were acquired. COMPARISON: None. FINDINGS: Bones: No fractures or dislocations. Ankle mortise is normally aligned. No suspicious bony lesions. Generalized decreased osseous mineralization noted. Soft tissues: No tibiotalar joint effusion. Achilles tendon appears normal. Lateral soft tissue swelling IMPRESSION: Soft tissue swelling without fracture or foreign body Osteopenia Note: Final report is concordant with preliminary interpretation by [employer] Approved by: Chay Richards M.D. on 12/08/2022 at 10:05
--- NOTE | 2022-12-08 02:56 | ED.LOWEXIN ---
HPI - Extremity Injury (Lower) <Elias Dickinson DO - Last Filed: 12/12/22 07:37> General Chief Complaint: Extremity Injury, Lower Stated Complaint: fall@1730- left ankle swelling Time Seen by Provider: 12/08/22 02:55 History of Present Illness HPI Narrative: 77-year-old female nonsmoker with history of GI bleeding presents by EMS for evaluation of left ankle injury. She states that this evening she was walking in her backyard and stepped in a hole and rolled her ankle which caused her to fall. She now has pain with deformity. She denies any numbness, tingling or weakness. She denies any head neck or back pain. She states that she had no prodromal symptoms contributing to her falls such as dizziness, weakness or lightheadedness. Related Data Home Medications Medication Instructions Recorded Confirmed atenolol 25 mg tablet 25 mg PO BID 01/17/22 01/29/22 duloxetine 20 mg capsule,delayed 20 mg PO DAILY 01/17/22 01/29/22 release escitalopram oxalate 5 mg tablet 5 mg PO TID 01/17/22 01/29/22 hydrochlorothiazide 25 mg tablet 25 mg PO DAILY 01/17/22 01/29/22 methocarbamol 750 mg tablet 750 mg PO BID PRN Pain (Scale 01/17/22 01/29/22 Score 4-6) Previous Rx's Medication Instructions Recorded pantoprazole 40 mg tablet,delayed 40 mg PO BID #60 tabs 01/20/22 release (Protonix) ferrous sulfate 325 mg (65 mg 325 mg PO TID #90 tabs 02/01/22 iron) tablet,delayed release Allergies Allergy/AdvReac Type Severity Reaction Status Date / Time Penicillins Allergy Intermediate Redness of Verified 01/30/22 15:35 Skin aripiprazole [From Abilify] Allergy Unknown Verified 01/29/22 14:01 adhesive AdvReac Verified 01/29/22 14:01 Review of Systems <DO Mark Valdez Last Filed: 12/12/22 07:37> Review of Systems Narrative: GENERAL: Denies chills, fatigue, malaise, fever, sweats. HEENT: Denies sinus pain, ear pain, sore throat, difficulty swallowing, dizziness. RESPIRATORY: Denies dyspnea, cough, wheezing, hemoptysis, sputum. CARDIOVASCULAR: Denies chest pain, palpitations, orthopnea, edema, GASTROINTESTINAL: Denies nausea, vomiting, abdominal pain, diarrhea, constipation, melena. : Denies dysuria, frequency, incontinence, hematuria, urinary retention. MUSCULOSKELETAL: See HPI SKIN: Denies rash, skin lesions, or other NEUROLOGIC: Denies weakness, headache, numbness, change in speech, confusion, seizures, incoordination. PSYCHIATRIC: No concerning psychosocial issues. 12 point review of systems is negative except for those stated above Patient History <Elias Dickinson DO - Last Filed: 12/12/22 07:37> Medical History Delvalle esophagus Depression HTN (hypertension) Family History Mother Alive and well Father Stomach cancer Daughter Heart transplant rejection Congenital heart defect Social History household members: none Smoking Status: Never smoker alcohol intake: current Smoking Status: Never smoker alcohol intake frequency: holidays/special occasions only Substance Use Type: does not use Exam <Elias Dickinson DO - Last Filed: 12/12/22 07:37> Narrative Exam Narrative: GENERAL: [77] year old patient appears stated age. Well-developed patient, in mild distress. HEAD: Atraumatic. Normocephalic. EYES: Pupils equal round and reactive. Extraocular motions intact. No scleral icterus. No injection or drainage. ENT: Nose without bleeding, purulent drainage. Throat without erythema, tonsillar hypertrophy or exudate. Airway patent. NECK: Trachea midline. Non tender CARDIOVASCULAR: Regular rate and rhythm without murmurs, gallops, or rubs. RESPIRATORY: Clear to auscultation. Breath sounds equal bilaterally. No wheezes, rales, or rhonchi. GASTROINTESTINAL: Abdomen soft, non-tender, nondistended. EXTREMITIES: No pain in left hip, knee, tib-fib. Patient complains of left lateral ankle pain, closed, isolated and neurovascularly intact BACK: Nontender without deformity or crepitance. No flank tenderness. NEURO: AOx3. SKIN: No rash or erythema of visible areas Initial Vital Signs Initial Vital Signs: Vital Signs Temperature 98.4 F 12/08/22 02:58 Pulse Rate 78 12/08/22 02:58 Respiratory Rate 18 12/08/22 02:58 Blood Pressure 184/84 H 12/08/22 02:58 Pulse Oximetry 94 12/08/22 02:58 Oxygen Delivery Method Room Air 12/08/22 02:58 <DO Mark Velez Last Filed: 12/09/22 07:41> Initial Vital Signs Initial Vital Signs: Vital Signs Temperature 98.4 F 12/08/22 02:58 Pulse Rate 78 12/08/22 02:58 Respiratory Rate 18 12/08/22 02:58 Blood Pressure 184/84 H 12/08/22 02:58 Pulse Oximetry 94 12/08/22 02:58 Oxygen Delivery Method Room Air 12/08/22 02:58 Course <DO Mark Valdez Last Filed: 12/12/22 07:37> Orders Ordered: ED Orders 12/08/22 02:55 XR ankle LT min 3V Stat 12/08/22 04:15 CT LE LT wo con Stat Consultations Consultation #1: Discussed with on-call orthopedist (Gaetano) she has reviewed the history and physical exam as well as x-rays. She sees no significant bony abnormality but does recommend CT given patient's pain in inability to fully resume normal anatomic alignment Vital Signs Vital signs: Vital Signs - 8 hr 12/08/22 02:58 12/08/22 03:00 12/08/22 03:30 Temperature 98.4 F Pulse Rate 78 Respiratory Rate 18 Blood Pressure 184/84 H 174/77 H 147/113 H Pulse Oximetry 94 Oxygen Delivery Method Room Air 12/08/22 03:38 12/08/22 03:52 12/08/22 03:52 Temperature Pulse Rate 80 77 Respiratory Rate Blood Pressure 153/69 H Pulse Oximetry 92 95 Oxygen Delivery Method 12/08/22 04:00 12/08/22 04:00 12/08/22 04:30 Temperature Pulse Rate 80 Respiratory Rate Blood Pressure 154/69 H 166/72 H Pulse Oximetry 95 Oxygen Delivery Method 12/08/22 04:30 12/08/22 08:13 12/08/22 08:13 Temperature Pulse Rate 80 77 Respiratory Rate Blood Pressure 115/58 L Pulse Oximetry 94 92 Oxygen Delivery Method <DO Mark Velez Last Filed: 12/09/22 07:41> Orders Ordered: ED Orders 12/08/22 02:55 XR ankle LT min 3V Stat 12/08/22 04:15 CT LE LT wo con Stat Vital Signs Vital signs: Vital Signs - 8 hr 12/08/22 02:58 12/08/22 03:00 12/08/22 03:30 Temperature 98.4 F Pulse Rate 78 Respiratory Rate 18 Blood Pressure 184/84 H 174/77 H 147/113 H Pulse Oximetry 94 Oxygen Delivery Method Room Air 12/08/22 03:38 12/08/22 03:52 12/08/22 03:52 Temperature Pulse Rate 80 77 Respiratory Rate Blood Pressure 153/69 H Pulse Oximetry 92 95 Oxygen Delivery Method 12/08/22 04:00 12/08/22 04:00 12/08/22 04:30 Temperature Pulse Rate 80 Respiratory Rate Blood Pressure 154/69 H 166/72 H Pulse Oximetry 95 Oxygen Delivery Method 12/08/22 04:30 12/08/22 08:13 12/08/22 08:13 Temperature Pulse Rate 80 77 Respiratory Rate Blood Pressure 115/58 L Pulse Oximetry 94 92 Oxygen Delivery Method <Ana Cochran, - Last Filed: 12/09/22 07:41> Imaging Data CT LE: Radiologist's Impression: Lateral ankle rate and suspected. Patient has cystic structure present in the ankle. Tania Martines?(Kathy)??77??F??1945 ? Allergy/Adv: Penicillins, aripiprazole, adhesive (More??) Close Lower Extremity CT (Signed) Chay Richards - 12/08/22 Ankle X-Ray (Signed) Chay Richards - 12/08/22 Chest X-Ray (Signed) Tayler Davis - 01/29/22 Telemetry Strips 01/29/22 Chest/Abdomen/Pelvis CT (Signed) Jarret Steel - 01/18/22 Echocardiogram Ultrasound (Signed) Tacos Hernandez - 01/17/22 Telemetry Strips 01/17/22 Telemetry Strips 01/17/22 Chest X-Ray (Signed) Saranya Balderas - 01/17/22 Launch?[address] [address] [address] Scan Report Signed Patient: Tania Martines MR#: [id number] : 1945 Acct:[id number] Age/Sex: 77 / F Date of Service: 12/08/22 Loc: ED Accession Number: [id number] ?? Procedure: CT LE LT wo con Ordering Provider: Elias Dickinson D.O. PROCEDURE:? CT LE LT W CON ? INDICATIONS:? ankle deformity, request per Ortho ? TECHNIQUE:? Noncontrast 1-1.5 mm axial sections acquired from above the tibiotalar joint to the bottom of the calcaneus, with coronal and sagittal reformats.? ? COMPARISON:? None. ? FINDINGS:? Image quality:? Excellent.? ? Bones:? Normal bone mineralization.? Distal tibia and fibula unremarkable.? Ankle mortise is maintained.? Intertarsal, tarsometatarsal and metatarsophalangeal joints all unremarkable.? No evidence of fracture. ? Soft tissues:? Generalized soft tissue swelling noted.? Major ligaments appear otherwise intact.? There is a dorsal subcutaneous cyst measuring 1.3 x 1.0 x 1.7 cm near the talonavicular joint. ? IMPRESSION:? ? No evidence of fracture, subluxation or intrinsic osseous lesion. ? Generalized edematous soft tissue swelling. ? Dorsal subcutaneous soft tissue cyst, possibly ganglion cyst. ? ? Note:? Final report is concordant with preliminary interpretation by [employer] ? Approved by: Chay Richards M.D. on 12/08/2022 at 10:27? [facility] Narrative Medical decision making narrative: 12/09/22 Mank: Patient was signed out to myself by Dr. Dickinson. Patient seen and evaluated by myself. Patient had left ankle injury likely strain but holds patient's ankle in an inverted position. She does have a lump which has been present for a long time and patient states it is a ganglion cyst. Ankle x-ray did not show obvious fracture, Dr. Dickinson consulted with Dr. Allen with Orthopedic surgery. Decision was made to get a lower extremity CT. This was found to have no fracture, some edematous soft tissue swelling and dorsal subcutaneous soft tissue cyst possible ganglion cyst. Patient was placed in walking boot, weight-bearing as tolerated. Reviewed all findings. Patient feels comfortable with plan to discharge home with as needed Tylenol she does not tolerate ibuprofen and follow up as needed. Discharge Plan Departure Patient Disposition: Home Clinical Impression: Left ankle sprain Instructions: DI for Ankle Sprain Activity Restrictions/Additional Instructions: Please follow-up if your symptoms are not improving in the next 7-10 days. You may weightbear as tolerated. Your imaging does not show any signs of fracture or break, there is a cystic structure along side the tendons. If this has not been evaluated in the past, can follow up with Orthopedic surgery. Referral is included below. You may take Tylenol up to a 1000 mg every 6 hours as needed for pain. Splint Care: Keep splint clean and dry. Elevated affected body part to decrease swelling. OK to use ice pack on the affected body part. Use for 15-20 minutes each time, for 5-6x per day. If you develop worsening pain, numbness, tingling, discoloration of the affected body part, loosen the splint by loosening the CLARENCE wrap, and either see your doctor for an urgent re-assessment, or return to the Emergency Department. Return to the Emergency Department for any new or worsening symptoms. Prescriptions: No Action atenolol 25 mg tablet 25 mg PO BID Patient Comments: TAKE 1 TABLET BY MOUTH TWICE DAILY methocarbamol 750 mg tablet 750 mg PO BID PRN (Reason: Pain (Scale Score 4-6)) hydrochlorothiazide 25 mg tablet 25 mg PO DAILY Patient Comments: TAKE 1 TABLET BY MOUTH ONCE DAILY escitalopram oxalate 5 mg tablet 5 mg PO TID Patient Comments: TAKE 3 TABLETS BY MOUTH ONCE DAILY duloxetine 20 mg capsule,delayed release(DR/EC) 20 mg PO DAILY Patient Comments: TAKE 2 CAPSULES BY MOUTH ONCE DAILY pantoprazole [Protonix] 40 mg tablet,delayed release (DR/EC) 40 mg PO BID Qty: 60 0RF ferrous sulfate 325 mg (65 mg iron) tablet,delayed release (DR/EC) 325 mg PO TID Qty: 90 0RF Referrals: Candice Salter MD [Physician] - Stand Alone Forms: Patient Portal/API
--- NOTE | 2022-12-08 04:15 | DI.CT.S_ITS ---
PROCEDURE: CT LE LT W CON INDICATIONS: ankle deformity, request per Ortho TECHNIQUE: Noncontrast 1-1.5 mm axial sections acquired from above the tibiotalar joint to the bottom of the calcaneus, with coronal and sagittal reformats. COMPARISON: None. FINDINGS: Image quality: Excellent. Bones: Normal bone mineralization. Distal tibia and fibula unremarkable. Ankle mortise is maintained. Intertarsal, tarsometatarsal and metatarsophalangeal joints all unremarkable. No evidence of fracture. Soft tissues: Generalized soft tissue swelling noted. Major ligaments appear otherwise intact. There is a dorsal subcutaneous cyst measuring 1.3 x 1.0 x 1.7 cm near the talonavicular joint. IMPRESSION: No evidence of fracture, subluxation or intrinsic osseous lesion. Generalized edematous soft tissue swelling. Dorsal subcutaneous soft tissue cyst, possibly ganglion cyst. Note: Final report is concordant with preliminary interpretation by [employer] Approved by: Chay Richards M.D. on 12/08/2022 at 10:27
== END 2022-12-08 09:28 | disposition home or self-care (01) ==
PROVIDERS: Emergency Provider Emergency Medicine
DX: S93.402A Sprain of unspecified ligament of left ankle, initial encounter (principal); X50.1XXA Overexertion from prolonged static or awkward postures, initial encounter
CPT/HCPCS: 73610; 73700; 99282; 99284

== ENCOUNTER 2022-12-26 14:17 | Day surgery (SDC) | payer OTHER, SELFPAY ==
[2022-01-29 20:05] VITALS: BMI 25.6
--- NOTE | 2022-12-26 15:10 | PM.HP.1 ---
History of Present Illness History of Present Illness Date Patient Seen: 12/26/22 Time Patient Seen: 15:10 Chief complaint: EGD w/poss bx Narrative: Iron-deficiency anemia. Capsule revealed watermelon stomach. She is here for EGD. [facility] Medical History Delvalle esophagus Depression HTN (hypertension) Family History Mother Alive and well Father Stomach cancer Daughter Heart transplant rejection Congenital heart defect Social History household members: none Smoking Status: Former smoker alcohol intake: current Meds Home Medications and Allergies Home Medications Medication Instructions Recorded Confirmed Type atenolol 25 mg tablet 25 mg PO BID 01/17/22 01/29/22 History duloxetine 20 mg capsule,delayed 20 mg PO DAILY 01/17/22 01/29/22 History release escitalopram oxalate 5 mg tablet 5 mg PO TID 01/17/22 01/29/22 History hydrochlorothiazide 25 mg tablet 25 mg PO DAILY 01/17/22 01/29/22 History methocarbamol 750 mg tablet 750 mg PO BID PRN Pain (Scale 01/17/22 01/29/22 History Score 4-6) pantoprazole 40 mg tablet,delayed 40 mg PO BID #60 tabs 01/20/22 01/29/22 Rx release (Protonix) ferrous sulfate 325 mg (65 mg 325 mg PO TID #90 tabs 02/01/22 Rx iron) tablet,delayed release Allergies Allergy/AdvReac Type Severity Reaction Status Date / Time Penicillins Allergy Intermediate Redness of Verified 01/30/22 15:35 Skin aripiprazole [From Abilify] Allergy Unknown Verified 01/29/22 14:01 azithromycin Allergy Verified 12/26/22 14:41 iron dextran complex Allergy Anaphylaxis Verified 12/26/22 14:47 adhesive AdvReac Verified 01/29/22 14:01 Review of Systems Review of Systems ROS: Yes All systems reviewed with the patient and are negative except as otherwise documented Exam Const General: cooperative HENMT Head: normal to inspection Eyes General: appearance normal, both eyes and all related structures Neck Neck: normal visual inspection Chest Chest: normal inspection of the chest Resp Effort & Inspection: normal respiratory effort Cardio Rate: regular rate GI Inspection: normal to inspection Skin General: no rashes or lesions noted Neuro General: patient alert and patient awake Extrem General: normal to inspection and no pedal edema Psych Appearance: grossly normal Assessment & Plan Assessment & Plan narrative: 77-year-old female with iron-deficiency anemia and water melena stomach identified at capsule. EGD is pursued today with a for APC ablation.
--- NOTE | 2022-12-26 15:12 | PM.PREOP ---
Pre-operative Note Interval Note History & Physical reviewed/Exam performed by Physician: Yes Changes to H&P: No ASA Class (for procedural sedation): III
--- NOTE | 2022-12-26 16:06 | PM.OP.EGD ---
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 The patient was brought into the procedure room and placed into the left lateral decubitus position. Please see anesthesia notes for sedation details. The scope was introduced into the mouth through the bite block and advanced under direct visualization to the 2nd portion of the duodenum. The scope was slowly withdrawn carefully examining the mucosa for any defects or lesions. Retroflexed views were accomplished in the stomach. The stomach was decompressed, the scope was then removed from the patient who tolerated the procedure well. Sedation minutes: 19 Specimen(s): none sent Impression: 1. Duodenum: This was visually unremarkable from the bulb through to the 2nd portion. 2. Stomach: The patient had obvious gastric antral vascular ectasia. There were additional scattered ectatic vasculature throughout the remainder of the stomach. However in the antrum, there was a very classic appearance and in the setting of her iron-deficiency indeed suggested the need for APC ablation. I used a circumferential probe with 25 w setting and 0.8 L of argon per minute. The heaviest areas of vascular ectasia were ablated. There were no apparent bleeding complications. 3. Esophagus: The Z-line was slightly irregular. There was no evidence of any active esophagitis. No stricturing no neoplastic features. 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 Follow CBC in the outpatient setting. 2. Continue iron supplementation 3. Should the patient have recurrent anemia or falling iron indices despite replenishment, repeat EGD for further treatment would be appropriate. Disposition: PACU
[2022-12-26 16:08] VITALS: BP 91/46; PULSE 68; RESP 16; TEMP 36.2; O2SAT 90
[2022-12-26 16:13] VITALS: BP 81/44; PULSE 67; RESP 15; O2SAT 90
[2022-12-26 16:18] VITALS: BP 116/58; PULSE 67; RESP 15; O2SAT 94
[2022-12-26] MEDS: LACTATED RINGERS 1,000 ML 84 ML IV (16:19)
[2022-12-26 16:27] VITALS: BP 155/87; PULSE 67; RESP 15; O2SAT 97
== END 2022-12-26 17:17 | disposition home or self-care (01) ==
PROVIDERS: Referring Provider Internal Medicine Gastroenterology; Visit Provider Internal Medicine Gastroenterology
PROC: 0DJ08ZZ Inspection of Upper Intestinal Tract, Via Natural or Artificial Opening Endoscopic (ICD-10-PCS; CPT 43235; principal; 2022-12-26 15:30)
DX: K31.819 Angiodysplasia of stomach and duodenum without bleeding (principal); D50.9 Iron deficiency anemia, unspecified
CPT/HCPCS: 43270; J2704

== ENCOUNTER 2023-04-15 10:42 | Day surgery (SDC) | payer OTHER, SELFPAY ==
[2022-01-29 20:05] VITALS: BMI 25.6
[2023-04-15 11:01] VITALS: BMI 23.4
[2023-04-15 11:10] VITALS: BP 153/73; PULSE 55; RESP 20; TEMP 36.3; O2SAT 96
[2023-04-15] MEDS: LACTATED RINGERS 1,000 ML 42 ML IV (11:13)
--- NOTE | 2023-04-15 11:50 | PM.HP.1 ---
History of Present Illness History of Present Illness Date Patient Seen: 04/15/23 Time Patient Seen: 11:50 Chief complaint: EGD w/Argon Plasma Coagulation Narrative: Here for upper endoscopy and possible APC ablation in the setting of GAVE. [facility] Medical History Delvalle esophagus HTN (hypertension) Depression Family History Mother Alive and well Father Stomach cancer Daughter Heart transplant rejection Congenital heart defect Social History household members: none Smoking Status: Former smoker alcohol intake: current Meds Home Medications and Allergies Home Medications Medication Instructions Recorded Confirmed Type atenolol 25 mg tablet 50 mg PO BID 01/17/22 04/15/23 History duloxetine 20 mg capsule,delayed 20 mg PO DAILY 01/17/22 04/15/23 History release hydrochlorothiazide 25 mg tablet 50 mg PO DAILY 01/17/22 04/15/23 History methocarbamol 750 mg tablet 750 mg PO BID PRN Pain (Scale 01/17/22 04/15/23 History Score 4-6) lidocaine HCl 5 mg/mL (0.5 %) mg 12/26/22 History injection solution (Xylocaine) magnesium PO DAILY 12/26/22 History mirtazapine 7.5 mg tablet 7.5 mg PO QPM 12/26/22 04/15/23 History omeprazole 20 mg capsule,delayed 20 mg PO BID 12/26/22 04/15/23 History release oxycodone 5 mg tablet 5 mg PO DAILY PRN Pain (Scale 12/26/22 04/15/23 History Score 1-3) potassium chloride 20 mEq 10 meq PO BID 12/26/22 04/15/23 History tablet,extended release pravastatin 10 mg tablet 10 mg PO DAILY 12/26/22 12/26/22 History Allergies Allergy/AdvReac Type Severity Reaction Status Date / Time Penicillins Allergy Intermediate Redness of Verified 04/15/23 10:57 Skin aripiprazole [From Abilify] Allergy Unknown loss of Verified 04/15/23 10:57 consciousness azithromycin Allergy Unknown unknown Verified 04/15/23 10:57 iron dextran complex Allergy Unknown Anaphylaxis Verified 04/15/23 10:57 adhesive AdvReac Unknown blisters Verified 04/15/23 10:57 Review of Systems Review of Systems ROS: Yes All systems reviewed with the patient and are negative except as otherwise documented Exam Vital Signs (past 8 hours): - 04/15/23 11:10 Temperature 97.3 F L Pulse Rate 55 L Respiratory Rate 20 Blood Pressure 153/73 H Pulse Oximetry 96 Oxygen Delivery Method Room Air Oxygen Delivery Method Room Air Const General: cooperative HENMT Head: normal to inspection Eyes General: appearance normal, both eyes and all related structures Neck Neck: normal visual inspection Chest Chest: normal inspection of the chest Resp Effort & Inspection: normal respiratory effort Cardio Rate: regular rate GI Inspection: normal to inspection Skin General: no rashes or lesions noted Neuro General: patient alert and patient awake Extrem General: normal to inspection and no pedal edema Psych Appearance: grossly normal Assessment & Plan Assessment & Plan narrative: 78-year-old female with anemia and gastric antral vascular ectasia. Updated EGD and possible APC ablation or pursued today.
--- NOTE | 2023-04-15 11:51 | PM.PREOP ---
Pre-operative Note Interval Note History & Physical reviewed/Exam performed by Physician: Yes Changes to H&P: No ASA Class (for procedural sedation): III
--- NOTE | 2023-04-15 12:51 | PM.OP.EGD ---
Operative Date/Time/Diagnoses Date of procedure: 04/15/23 Time of procedure: 12:52 Pre-op diagnosis: Anemia history of GAVE Post-op diagnosis: same Procedure & Clinicians Study performed: EGD with APC ablation Same procedure as scheduled: Yes Indications: Anemia history of GAVE Surgeon: Ubaldo Wilkerson Procedure Notes SCOAP/Timeout: Done Procedure in detail: After the risks and benefits were explained, written and verbal informed consent was obtained. The patient was brought into the procedure room and placed into the left lateral decubitus position. Please see anesthesia notes for sedation details. The scope was introduced into the mouth through the bite block and advanced under direct visualization to the 2nd portion of the duodenum. The scope was slowly withdrawn carefully examining the mucosa for any defects or lesions. Retroflexed views were accomplished in the stomach. The stomach was decompressed, the scope was then removed from the patient who tolerated the procedure well. Sedation minutes: 19 Specimen(s): none sent Complications: none Impression: 1. Duodenal: No pathology from the bulb through to the 2nd portion. 2. Stomach: The patient had mild gastric antral vascular ectasia and the dominant lesions were addressed with APC using 0.8 liters/minute and 30 w. The remainder of the stomach demonstrated diffuse telangiectasia without any focal source of bleeding. Gastric folds were prominent but no obvious varices. 3. Esophagus: The squamocolumnar junction correlated with the top of the gastric folds. GEJ was at about 35 cm from the incisors. No overt esophageal pathology appreciated throughout. Endoscopic diagnosis 1. 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 Continue to follow up in Hematology Clinic. 2. Continue iron infusions as needed. 3. Repeat EGD as needed Disposition: PACU
[2023-04-15 12:56] VITALS: BP 140/66; PULSE 61; RESP 14; TEMP 37.2; O2SAT 99
[2023-04-15 13:02] VITALS: BP 142/68; PULSE 62; RESP 17; TEMP 37; O2SAT 96
[2023-04-15 13:06] VITALS: BP 141/64; PULSE 60; RESP 14; TEMP 36.9; O2SAT 95
[2023-04-15 13:12] VITALS: BP 143/65; PULSE 67; RESP 16; O2SAT 95
== END 2023-04-15 14:00 | disposition home or self-care (01) ==
PROVIDERS: Referring Provider Internal Medicine Gastroenterology; Visit Provider Internal Medicine Gastroenterology
PROC: 0DJ08ZZ Inspection of Upper Intestinal Tract, Via Natural or Artificial Opening Endoscopic (ICD-10-PCS; CPT 43235; principal; 2023-04-15 11:30)
DX: D64.9 Anemia, unspecified (principal); K31.819 Angiodysplasia of stomach and duodenum without bleeding; I78.1 Nevus, non-neoplastic
CPT/HCPCS: 43270; J2704